=== PATIENT | male | born 2000 | race Caucasian/White ===

== ENCOUNTER 2019-09-25 14:40 | Emergency (ER) | payer SELFPAY ==
[2019-09-25 14:57] VITALS: BP 125/68; PULSE 77; RESP 16; TEMP 37.1; O2SAT 99
--- NOTE | 2019-09-25 15:04 | ED.DENTAL ---
HPI - Dental/Oral General Chief complaint: Dental/Oral Stated complaint: Toothache and facial swelling Time Seen by Provider: 09/25/19 15:05 Source: patient and RN notes reviewed Mode of arrival: ambulatory Limitations: no limitations History of Present Illness HPI Narrative: This is a 19 years old male presents to the office for an evaluation of tooth pain for one month. Patient stated that he broke his left lower tooth from trying to open a beer bottle a month ago, complains of pain off and on since then; however it gets worse last night and woke up this morning with left side facial swelling. He tried salt gargle last night. He also try to alternate heat and ice for pain along with ibuprofen and Tylenol. He cannot afford to see a dentist at the moment. Related Data Allergies Allergy/AdvReac Type Severity Reaction Status Date / Time No Known Allergies Allergy Verified 09/25/19 14:59 Review of Systems Review of Systems: Narrative: CONSTITUTIONAL: Denies fever ENT: Denies congestion CARDIOVASCULAR: Denies chest pain RESPIRATORY: Denies cough GASTROINTESTINAL: Denies nausea, vomiting SKIN: Denies rash NEUROLOGIC: Denies lightheaded PMFSH Comments At time of signature, I agree with nursing past medical, surgical, social and family history. There is no relevant family history pertinent to the presenting complaint. Exam Narrative: Exam Narrative: GENERAL: This is a well-nourished, well-developed patient, in no apparent distress. EYES: Sclera and conjunctivae normal ENT: External ears normal. Nose and lips normal. Airway patent.The tooth in question is very carious and the gum is swollen and tender around it. There is slight facial swelling without cervical or submandibular lymphadenopathy. The patient appears uncomfortable and in pain. CARDIOVASCULAR: Regular rate and rhythm without murmurs, gallops, or rubs. RESPIRATORY: Clear to auscultation. Breath sounds equal bilaterally. No wheezes, rales, or rhonchi. GASTROINTESTINAL: Abdomen soft, non-tender, nondistended. Bowel sounds are active. No hepato-splenomegaly, or palpable masses. No guarding. SKIN: warm, intact with no suspicious lesions or rash, good texture and turgor. NEURO: awake, alert, and oriented to person, place and time. There were no obvious focal neurologic abnormalities. Fly Coma Scale Eye Opening: Spontaneous 4 Fly Coma Scale Motor: Obeys Commands 6 [place] Coma Scale Verbal: Oriented 5 Course Vital Signs Vital signs: Vital Signs Temperature 98.7 F 09/25/19 14:57 Pulse Rate 77 09/25/19 14:57 Respiratory Rate 16 09/25/19 14:57 Blood Pressure 125/68 09/25/19 14:57 Pulse Oximetry 99 09/25/19 14:57 Temperature 98.7 F 09/25/19 14:57 Pulse Rate 77 09/25/19 14:57 Respiratory Rate 16 09/25/19 14:57 Blood Pressure 125/68 09/25/19 14:57 Pulse Oximetry 99 09/25/19 14:57 MDM - Dental/Oral MDM Narrative Medical decision making narrative: Discharge instructions reviewed with patient, as well as provided in writing per nursing staff. The instructions also include specific and strict return/GO TO THE ER as well as f/u information. All questions have been answered, and the patient deny any further questions with discharge and discharge plan. Differential Diagnosis Differential diagnosis: Likely gingival abscess, dental caries, toothache, dental abscess, fracture of tooth and aphthous ulcer Critical Care Time Critical Care Time Critical Care Time: No Discharge Plan Discharge Clinical Impression: Gingivitis Patient Disposition: Home, Self-Care Condition: Stable Instructions: Antibiotic Form, Gingivitis (ED) Additional Instructions: Take antibiotic until it's gone. Brushing teeth at least twice daily with gentle flossing. Avoid temperature extremes---when you eat. Salt gargle to rinse your mouth after every meal You may apply ice to the face to reduce pain/swelling. For pain, you may ta
== END 2019-09-25 15:18 | disposition home or self-care (01) ==
PROVIDERS: Emergency Provider Nurse Practitioner
DX: K05.10 Chronic gingivitis, plaque induced (principal)
CPT/HCPCS: 99203; G0463

== ENCOUNTER 2021-07-23 08:43 | Emergency (ER) | payer SELFPAY ==
[2021-07-23 08:52] VITALS: BP 129/71; PULSE 77; RESP 16; TEMP 36.6; O2SAT 100
--- NOTE | 2021-07-23 09:36 | ED_ITS ---
HPI - Dental/Oral General Chief complaint: Dental/Oral Stated complaint: Tooth Pain Source: patient and RN notes reviewed Limitations: no limitations History of Present Illness HPI Narrative: The patient, a pot smoker/nondrinker, presents with tooth ache. Patient states he has about a 1 week history of right upper tooth ache that is mild, worse with palpation, better at rest. No fever, hoarseness, visible swelling, yet his gums are occasionally bleeding and tender. Symptoms are mild, worse with eating, unresponsive to Motrin; he request for refill of prior inhaler Review of Systems Review of Systems: General/Constitutional: No weight loss,fever Eyes: N0: Redness,discharge Ears/Nose/Throat: No: Epistaxis,ear discharge Respiratory: Denies: Hemoptysis PMFSH Comments At time of signature, agree with nursing past medical, surgical, social and family history. There is no relevant family history pertinent to the presenting complaint Exam Narrative: General Appearance: Well appearing, , Conjunctiva clear Mouth/Throat: Normal appearing (without jaw swelling), Normal lips, MM moist, Uvula midline (scattered dental caries and fillings,, with rare fracture) Neck: Supple, No adenopathy Respiratory: Airway patent, No respiratory distress, Clear to auscultation Musculoskeletal: Full ROM, Non tender, Normal strength, Warm, Dry, Normal color Neurological: A&O x3, , Normal affect Course Vital Signs Vital signs: Vital Signs Temperature 97.8 F 07/23/21 08:52 Pulse Rate 77 07/23/21 08:52 Respiratory Rate 16 07/23/21 08:52 Blood Pressure 129/71 07/23/21 08:52 Pulse Oximetry 100 07/23/21 08:52 Temperature 97.8 F 07/23/21 08:52 Pulse Rate 77 07/23/21 08:52 Respiratory Rate 16 07/23/21 08:52 Blood Pressure 129/71 07/23/21 08:52 Pulse Oximetry 100 07/23/21 08:52 Discharge Plan Discharge Clinical Impression: Toothache, Hx of gingivitis Patient Disposition: Home, Self-Care Condition: Stable Instructions: Antibiotic Form Prescriptions: New amoxicillin 875 mg tablet 875 mg PO Q12H Qty: 14 RF: 0 lidocaine HCl [Lidocaine Viscous] 2 % solution 5 ml mucous membrane QID PRN (Reason: pain) Qty: 100 RF: 2 tramadol 50 mg tablet 50 - 75 mg PO TID PRN (Reason: pain) Qty: 30 RF: 0 albuterol sulfate [Ventolin HFA] 90 mcg/actuation HFA aerosol inhaler 2 puff INHALATION QID PRN (Reason: shortness of breath or wheezing) Qty: 8.5 RF: 1 Follow-up/Referrals: PHYSICIAN,MAIL CARRIER TECHNICIAN [Primary Care Provider] -
== END 2021-07-23 09:40 | disposition home or self-care (01) ==
PROVIDERS: Emergency Provider Emergency Medicine
DX: K08.89 Other specified disorders of teeth and supporting structures (principal); K05.10 Chronic gingivitis, plaque induced
CPT/HCPCS: 99203; G0463

== ENCOUNTER 2021-07-30 08:48 | Emergency (ER) | payer SELFPAY ==
[2021-07-30 09:06] VITALS: BP 127/74; PULSE 80; RESP 16; TEMP 37; O2SAT 100
--- NOTE | 2021-07-30 09:28 | ED.ANIMALBIT ---
HPI - Animal Bite General Chief Complaint: Animal Bite Stated Complaint: Bite Time Seen by Provider: 07/30/21 09:28 Source: patient and RN notes reviewed Mode of arrival: ambulatory Limitations: no limitations History of Present Illness HPI narrative: 21-year-old male presents to the [facility] with complaints of a dog bite. 2 cm laceration to the left palmar aspect. Puncture wound noted to the right. Multiple abrasions noted to the dorsal aspect of the hand. Bleeding is controlled. Reports her dog is up-to-date on vaccines states that it is his own dog. Happened this morning. Unsure of patient's Tdap. Capillary refill in all 5 fingers under 2 seconds. Strong boom storage noted. MD complaint: animal bite Related Data Allergies Allergy/AdvReac Type Severity Reaction Status Date / Time No Known Allergies Allergy Verified 07/30/21 09:49 Review of Systems Review of Systems: All systems reviewed & are unremarkable except as noted in HPI and below Constitutional: Constitutional: Reports no additional constitutional complaints, Denies chills and Denies fever(s) Eyes: Eyes: Reports no additional eye complaints ENT: Reports system reviewed and no additional complaints, except as documented Cardiovascular: Cardiovascular: Reports no additional cardiovascular complaints Respiratory: Respiratory: Reports no additional respiratory complaints Gastrointestinal: Gastrointestinal: Reports no additional gastrointestinal complaints Musculoskeletal: Musculoskeletal: Reports no additional musculoskeletal complaints Integumentary/Breasts: Skin/Breast: Reports as per HPI, Denies erythema and Denies rash Comments: Left hand laceration palmar aspect. Right hand puncture wound palmar aspect. Multiple abrasions aspect bilateral hands Neurologic: Reports system reviewed and no additional complaints, except as documented Psychiatric: Psychiatric: Reports no additional psychiatric complaints Allergic/Immunologic: Allergic/Immunologic: Reports no additional allergic/immunologic complaints [facility] Past Medical History Medical History (Updated 07/30/21 @ 18:13 by Kalpana Hyman) No significant medical problems Surgical History Surgical History (Updated 07/30/21 @ 18:13 by Kalpana Hyman) History of ankle surgery Right Social History Social History (Updated 07/30/21 @ 18:13 by Kalpana Hyman) Smoking status: Current every day smoker Substance use type: marijuana Gender identity (if verbalized by the patient): Male Comments At the time of my signature, I reviewed and agree with the nursing past medical, surgical, social, and family history. There is no relevant family history pertinent to the patient complaint. Exam Const: General: healthy appearing, no acute distress and alert Nutritional Appearance: well nourished Orientation/consciousness: patient oriented x3 Limitations: no limitations HENMT: Head: normal to inspection Ears: external ears normal Eyes: Pupils: Equal, round and reactive pupils present Neck: Neck: normal visual inspection, no lymphadenopathy and no meningeal signs Chest: Chest palpation & inspection: normal inspection of the chest Resp: Effort & Inspection: normal respiratory effort Cardio: Rate: regular rate Back/Spine/Pelvis: Back: no CVA tenderness Skin: Wounds: wounds noted laceration left palmar hand size (2 cm), drainage serosanguinous and with surrounding erythema, puncture wound right palmar hand size (0.5); no drainage Other: Multiple abrasions to the dorsal aspect of bilateral hands Neuro: General: patient oriented x3, moves all extremities and no meningeal signs Extrem: General: normal to inspection Psych: Appearance: grossly normal and well kempt Mental Status: mental status grossly normal Affect: normal affect Attitude: cooperative Thought content: Yes Normal thought content present Course Course Emergency Course: Discharge instructions reviewed with patient, as well
[2021-07-30] MEDS: TETANUS,DIPHTHERIA,AC PERTUSSIS ADULT (0.5 ML) BOOSTRIX IM (10:36)
== END 2021-07-30 10:45 | disposition home or self-care (01) ==
PROVIDERS: Emergency Provider Nurse Practitioner
DX: S61.452A Open bite of left hand, initial encounter (principal); F17.200 Nicotine dependence, unspecified, uncomplicated; Z23 Encounter for immunization; W54.0XXA Bitten by dog, initial encounter
CPT/HCPCS: 12001; 90715; 99213; G0463

== ENCOUNTER 2022-02-06 12:58 | Emergency (ER) | payer SELFPAY ==
[2022-02-06 13:05] VITALS: BP 136/68; PULSE 83; RESP 16; TEMP 36.8; O2SAT 99
--- NOTE | 2022-02-06 13:22 | ED.SKABFB ---
HPI - Skin/Abscess/Foreign Bdy General Chief complaint: Skin/Abscess/Foreign Body Stated complaint: tick bite Time Seen by Provider: 02/06/22 13:22 Source: patient Mode of arrival: ambulatory Limitations: no limitations History of Present Illness HPI narrative: 21-year-old male presented for complaint of tick bite to the left inner ankle. He first noticed the tick 2 days ago when he removed it. He was on float trip 4 days ago. He states it was slightly engorged. Since then the red spot has increased in size, states it is tender and mild itchy. Denies active drainage, pain, fevers or chills. He applied alcohol to the site. He denies any other locations of tick bites or lesions. MD complaint: rash Related Data Allergies Allergy/AdvReac Type Severity Reaction Status Date / Time No Known Allergies Allergy Verified 02/06/22 13:04 Review of Systems Review of Systems: CONSTITUTIONAL: Denies body aches, fever, chills, or sweats. ENT: Denies rhinorrhea, congestion, sore throat, or otalgia. CARDIOVASCULAR: Denies chest pain, palpitations, or edema. RESPIRATORY: Denies cough or dyspnea. SKIN: reports ankle lesion MUSCULOSKELETAL: Denies back pain, joint pain, or myalgia. NEUROLOGIC: Denies headache, numbness, tingling, or weakness. [facility] Past Medical History Medical History No significant medical problems Surgical History Surgical History History of ankle surgery Right Social History Social History Smoking status: Current every day smoker Substance use type: marijuana Gender identity (if verbalized by the patient): Male Comments At time of signature, I have reviewed and agree with nursing past medical, surgical, social and family history unless otherwise noted. Please see nursing chart for further information. There is no relevant family history pertinent to the presenting complaint Exam Narrative: GENERAL: Well-appearing ENT: Mucous membranes moist. CHEST: Clear to auscultation. No respiratory distress. HEART: Regular rate and rhythm. SKIN: Warm, dry.Left medial ankle with red lesion approx 0.5cm diameter, no fluctuance or active drainage; surrounding red papules c/w folliculitis. NEURO: Alert and oriented x3. PSYCH: Normal mood and affect Course Course Emergency Course: Patient is aware of diagnosis, understands and agrees to treatment plan. Anticipatory guidance given. Patient agrees to follow-up as directed and is aware of reasons to seek care at the emergency department. Portions of this record may have been created with voice recognition software Level of Care: Express Care Visit Vital Signs Vital signs: Vital Signs Temperature 98.3 F 02/06/22 13:05 Pulse Rate 83 02/06/22 13:05 Respiratory Rate 16 02/06/22 13:05 Blood Pressure 136/68 02/06/22 13:05 Pulse Oximetry 99 02/06/22 13:05 Oxygen Delivery Room Air 02/06/22 13:05 Temperature 98.3 F 02/06/22 13:05 Pulse Rate 83 02/06/22 13:05 Respiratory Rate 16 02/06/22 13:05 Blood Pressure 136/68 02/06/22 13:05 Pulse Oximetry 99 02/06/22 13:05 Oxygen Delivery Room Air 02/06/22 13:05 Reviewed MDM - Skin/Abscess/Foreign Bdy MDM Narrative Medical decision making narrative: Does not appear at this time to be erythema multiforme, bullous, SJS, TEN; no evidence at this time to suggest RMSF, endocarditis or Lyme disease Patient looks well, no neurologic signs or symptoms; appropriate for initial outpatient treatment; discussed the importance of follow-up, patient agrees Given Rx doxy for prophylaxis. Instructed patient to go to nearest ER immediately for any worsening symptoms including but not limited to: fever, spreading rash, pain, sore throat, headache, dizziness, chest pain, trouble breathing, or any symptoms concerning to the pat
== END 2022-02-06 13:34 | disposition home or self-care (01) ==
PROVIDERS: Emergency Provider Nurse Practitioner Family
DX: S90.562A Insect bite (nonvenomous), left ankle, initial encounter (principal); W57.XXXA Bitten or stung by nonvenomous insect and other nonvenomous arthropods, initial encounter
CPT/HCPCS: 99213; G0463

== ENCOUNTER 2022-04-08 15:23 | Emergency (ER) | payer SELFPAY ==
[2022-04-08 15:34] VITALS: BP 134/83; PULSE 85; RESP 16; TEMP 36.7; O2SAT 100
--- NOTE | 2022-04-08 15:38 | ED.DENTAL ---
HPI - Dental/Oral General Chief complaint: Dental/Oral Stated complaint: Tooth Pain Time Seen by Provider: 04/08/22 15:38 Source: patient Mode of arrival: ambulatory Limitations: no limitations History of Present Illness HPI Narrative: 21-year-old male presents with complaint of left lower dental pain for several days. Reports that 1 or 2 months ago he broke left lower tooth. Does not have a dentist. States that after working 100 more hours he should be getting dental insurance through his work. Denies fever or chills. No significant facial swelling noted. All systems reviewed and negative except as noted above. Related Data Allergies Allergy/AdvReac Type Severity Reaction Status Date / Time No Known Allergies Allergy Verified 04/08/22 15:35 Review of Systems Review of Systems: CONSTITUTIONAL: Denies fever, chills, or sweats. EYES: Denies visual changes, redness, or discharge. ENT: Denies rhinorrhea, congestion, sore throat, or otalgia. Reports left lower dental pain. CARDIOVASCULAR: Denies chest pain, palpitations, or edema. RESPIRATORY: Denies cough or dyspnea. GASTROINTESTINAL: Denies abdominal pain, nausea, vomiting, or diarrhea. GENITOURINARY: Denies dysuria or hematuria. SKIN: Denies rash or itching. MUSCULOSKELETAL: Denies back pain, joint pain, or myalgia. NEUROLOGIC: Denies headache, numbness, or weakness. PSYCHIATRIC: Denies anxiety or depression. All other systems reviewed are negative, except as documented in HPI. PMFSH Past Medical History Medical History No significant medical problems Surgical History Surgical History History of ankle surgery Right Social History Social History Smoking status: Current every day smoker Substance use type: marijuana Gender identity (if verbalized by the patient): Male Comments At time of signature, agree with nursing past medical, surgical, social and family history. There is no relevant family history pertinent to the presenting complaint. Exam Narrative: GENERAL: This is a well-nourished, well-developed patient, in no apparent distress. HEAD: normocephalic, atraumatic. EYES: PERRL. Sclera clear/white. Vision is grossly intact. EARS: External ears normal NOSE: External nose normal MOUTH: Tooth #20 has broken down to gumline. There is some surrounding erythema. Patient has several other broken and decayed teeth. NECK: Neck supple, non-tender without lymphadenopathy, masses or thyromegaly. CARDIOVASCULAR: Regular rate and rhythm without murmurs, gallops, or rubs. RESPIRATORY: Clear to auscultation. Breath sounds equal bilaterally. No wheezes, rales, or rhonchi. SKIN: warm, Dry, intact with no suspicious lesions or rash, good texture and turgor. NEURO: awake, alert, and oriented to person, place and time. There were no obvious focal neurologic abnormalities. EXTREMITIES: No joint tenderness, effusion, or edema noted. Course Course Level of Care: Express Care Visit Vital Signs Vital signs: Vital Signs Temperature 36.7 C 04/08/22 15:34 Pulse Rate 85 04/08/22 15:34 Respiratory Rate 16 04/08/22 15:34 Blood Pressure 134/83 04/08/22 15:34 Pulse Oximetry 100 04/08/22 15:34 Oxygen Delivery Room Air 04/08/22 15:34 Temperature 36.7 C 04/08/22 15:34 Pulse Rate 85 04/08/22 15:34 Respiratory Rate 16 04/08/22 15:34 Blood Pressure 134/83 04/08/22 15:34 Pulse Oximetry 100 04/08/22 15:34 Oxygen Delivery Room Air 04/08/22 15:34 Reviewed MDM - Dental/Oral MDM Narrative Medical decision making narrative: Patient is aware of diagnosis, understands and agrees to treatment plan. Anticipatory guidance given. Patient agrees to follow-up as directed and is aware of reasons to seek care at the emergency department. Portions of this record may have bee
== END 2022-04-08 15:45 | disposition home or self-care (01) ==
PROVIDERS: Emergency Provider Nurse Practitioner Family
DX: K08.89 Other specified disorders of teeth and supporting structures (principal); F17.200 Nicotine dependence, unspecified, uncomplicated
CPT/HCPCS: 99213; G0463

== ENCOUNTER 2022-06-03 11:48 | Emergency (ER) | payer SELFPAY ==
--- NOTE | 2022-06-03 11:49 | ED.DENTAL ---
HPI - Dental/Oral General Stated complaint: Dental Pain Time Seen by Provider: 06/03/22 11:49 Source: patient Mode of arrival: ambulatory Limitations: no limitations History of Present Illness HPI Narrative: Morales is a 22-year-old male patient presenting to the clinic today with complaints of dental pain 3 days. He reports he was seen here approximately 2 weeks ago and was placed on amoxicillin for a dental infection. He states that the medicine made him feel better however the symptoms came back 3 days ago. He reports pain over the right sinuses and has noted some green nasal drainage with blood. Thinks that his right upper premolar tooth may be abscessed Related Data Allergies Allergy/AdvReac Type Severity Reaction Status Date / Time No Known Allergies Allergy Verified 06/03/22 12:04 Review of Systems Review of Systems: Pertinent positives per HPI. Patient denies any fever, chills, rash, headache, visual changes, dizziness, cough, runny nose, sore throat, shortness of breath, chest pain, palpitations, nausea, vomiting, diarrhea, constipation, abdominal pain, or any urinary issues. PMFSH Past Medical History Medical History No significant medical problems Surgical History Surgical History History of ankle surgery Right Social History Social History Smoking status: Current every day smoker Substance use type: marijuana Gender identity (if verbalized by the patient): Male Comments At the time of my signature, I reviewed and agree with the nursing past medical, surgical, social, and family history. There is no relevant family history pertinent to the patient complaint. Exam Narrative: General: Well-developed, well nourished, in no apparent distress Head: Normocephalic, atraumatic Eyes: Pupils equally round and reactive to light bilaterally, EOM intact, sclera and conjunctive clear, no discharge, lids normal Ears: TMs intact and clear, ear canals clear, no drainage, grossly hearing normal. Nose: Nares patent, no discharge, no inflammation, no sinus tenderness. Mouth: Oropharynx without lesions or masses, poor dentition, MMM. Fractured #5 and dental abscess over #4 with tenderness to palpation-no fluctuance Neck: Supple, trachea midline, no enlargement of anterior or posterior cervical nodes, no thyroid masses or goiter palpable. Cardio: Regular rate and rhythm, s1 and s2 normal, no murmur appreciated. Resp: Clear to auscultation bilaterally anteriorly and posteriorly, no rhonchi, rales, wheezing or rubs Course Course Emergency Course: Portions of this record may have been created with voice recognition software. Level of Care: Express Care Visit Vital Signs Vital signs: Vital signs reviewed MDM - Dental/Oral MDM Narrative Medical decision making narrative: At the time of visit patient is resting comfortably on the exam table I suspect patient has a dental abscess to the right upper tooth. We will send in prescription for Augmentin. Supportive measures were discussed with the patient he voiced understanding of discharge instructions and agrees to treatment plan. Differential Diagnosis Differential diagnosis: Likely dental caries, toothache, dental abscess and fracture of tooth Discharge Plan Discharge Clinical Impression: Dental abscess Patient Disposition: Home, Self-Care Condition: Stable Instructions: Antibiotic Form, Dental Abscess (ED) Additional Instructions: Take Augmentin as prescribed Increase fluids and stay well hydrated Take tylenol/motrin for pain/fever Follow up with your dentist as soon as possible Prescriptions: New amoxicillin-pot clavulanate 875-125 mg tablet 1 tablet PO Q12H 10 Days Qty: 20 0RF No Action amoxicillin 875 mg tablet 875 mg PO Q12H 10
[2022-06-03 11:54] VITALS: BP 136/75; PULSE 95; RESP 16; TEMP 37.3; O2SAT 99
== END 2022-06-03 12:12 | disposition home or self-care (01) ==
LOC: EXPCOLL 11:51
PROVIDERS: Emergency Provider Nurse Practitioner Family
DX: K04.7 Periapical abscess without sinus (principal); F12.90 Cannabis use, unspecified, uncomplicated
CPT/HCPCS: 99213; G0463

== ENCOUNTER 2022-07-31 15:37 | Emergency (ER) | payer SELFPAY ==
--- NOTE | ~2022-07-31 | XR_ITS ---
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 no cardiac hx Comparison: 06/12/2016. RESULT: Lines, tubes, and devices: None. Lungs and pleura: Clear. Cardiomediastinal silhouette: Stable. Other: No acute osseous or upper abdominal finding. IMPRESSION: No acute cardiopulmonary process. Reviewed, dictated and finalized at location K. MOTIVE SWITCH OPERATOR
[2022-07-31 16:15] VITALS: BP 157/96; PULSE 91; RESP 16; TEMP 36.8; O2SAT 100
--- NOTE | 2022-07-31 16:28 | ECG_ITS ---
Measurements Intervals [place] Rate: 81 P: 49 [place]: 147 QRS: 90 QRSD: 110 T: 40 QT: 360 QTc: 419 Interpretive Statements SINUS RHYTHM NORMAL ECG NO PREVIOUS ECG AVAILABLE FOR COMPARISON Electronically Signed On 07-31-2022 17:41:31 LAYER UP by Yair Mejias M.D.
[2022-07-31 16:48] LABS: Basophils Absolute Auto 0.1 K/mm3 (0.0-0.1); Basophils Percent Auto 0.8 % (0.2-1.2); Eosinophils Absolute Auto 0.2 K/mm3 (0-0.3); Eosinophils Percent Auto 2.3 % (0-4.4); Hematocrit 43.8 % (42.0-52.0); Hemoglobin 15.5 g/dL (14.0-18.0); Immature Granulocyte Absolute 0.08 K/mm3 (0.00-0.031); Immature Granulocyte Percent A 0.9 % (0-0.5); Lymphocytes Absolute Auto 2.88 K/mm3 (0.9-3.2); Lymphocytes Percent Auto 31.1 % (18.3-44.2); Mean Corpuscular HGB Conc 35.4 g/dl (32-36); Mean Corpuscular Hemoglobin 31.4 pg (26-34); Mean Corpuscular Volume 88.7 fl (80-100); Mean Platelet Volume 9.7 fl (7.4-10.4); Monocytes Absolute Auto 0.9 K/mm3 (0.1-0.6); Monocytes Percent Auto 10.2 % (2.6-8.5); Neutrophils Absolute Auto 5.1 K/mm3 (1.3-6.7); Neutrophils Percent Auto 54.7 % (45.5-73.1); Platelet Count Result 410 k/mm3 (150-375); Red Blood Count 4.94 M/mm3 (4.6-6.20); Red Cell Distribution Width 12.2 % (11.5-14.5); White Blood Count 9.3 K/mm3 (4.5-10.0)
[2022-07-31 16:59] LABS: Alanine Aminotransferase 79 U/L (6-50); Albumin Level 4.9 g/dL (3.5-5.1); Alkaline Phosphatase 83 U/L (38-126); Anion Gap 8 mmol/L (8-16); Aspartate Amino Transferase 53 U/L (17-59); Bilirubin,Total 0.7 mg/dL (0.2-1.3); Blood Urea Nitrogen 15 mg/dL (9-20); Calcium 9.5 mg/dL (8.4-10.2); Carbon Dioxide 27 mmol/L (22-30); Chloride 106 mmol/L (98-107); Estimated CRCL calculation 108 ml/min; Estimated Glomerular Filt Rate > 60; Glucose 94 mg/dL (65-110); Potassium 3.9 mmol/L (3.4-5.0); Sodium 141 mmol/L (137-145)
--- NOTE | 2022-07-31 21:05 | PC.NURSE ---
no answer at triage
== END 2022-07-31 21:05 | disposition left against medical advice (07) ==
PROVIDERS: Emergency Provider Emergency Medicine
DX: R03.0 Elevated blood-pressure reading, without diagnosis of hypertension (principal)
CPT/HCPCS: 36415; 71046; 80053; 85025; 93005; 99199

== ENCOUNTER 2023-01-06 11:04 | Emergency (ER) | payer OTHER, SELFPAY ==
--- NOTE | ~2023-01-06 | CT_ITS ---
EXAMINATION: CT abdomen pelvis w con DATE: 01/06/2023 12:18 INDICATION: Right lower quadrant abdominal tenderness. TECHNIQUE: Computed tomography (CT) of the abdomen and pelvis was performed with 100 mL Omnipaque 350 intravenous contrast. Automated exposure control and iterative reconstruction technique were employe d. The dose-length product was 445.29 mGy-cm. COMPARISON: None. FINDINGS: The visualized portions of the lung bases demonstrate mild atelectasis. No pleural effusion . The heart size is normal. No pericardial effusion. There is a 5 mm cyst in the liver. The gallbladd er, spleen, pancreas, adrenal glands, and right kidney are normal. There is a 3 mm cyst in left kidne y. There are no dilated loops of bowel. The appendix is normal. There are no pathologically enlarged lymph nodes. There is no free intraperitoneal fluid. There is an umbilical hernia containing fat. The re is mild lumbar spondylosis. IMPRESSION: 1. Umbilical hernia containing fat. Reviewed, dictated and finalized at location A.
[2023-01-06 11:08] VITALS: BP 145/89; PULSE 83; RESP 16; TEMP 36.5; O2SAT 100
[2023-01-06 11:31] LABS: Basophils Percent Auto 0.6 % (0.2-1.2); Eosinophils Absolute Auto 0.2 K/mm3 (0-0.3); Eosinophils Percent Auto 2.3 % (0-4.4); Hematocrit 44.8 % (42.0-52.0); Hemoglobin 15.8 g/dL (14.0-18.0); Immature Granulocyte Absolute 0.03 K/mm3 (0.00-0.031); Immature Granulocyte Percent A 0.5 % (0-0.5); Lymphocytes Absolute Auto 2.51 K/mm3 (0.9-3.2); Lymphocytes Percent Auto 39.2 % (18.3-44.2); Mean Corpuscular HGB Conc 35.3 g/dl (32-36); Mean Corpuscular Hemoglobin 30.9 pg (26-34); Mean Corpuscular Volume 87.5 fl (80-100); Mean Platelet Volume 10.1 fl (7.4-10.4); Monocytes Absolute Auto 0.6 K/mm3 (0.1-0.6); Neutrophils Absolute Auto 3.1 K/mm3 (1.3-6.7); Neutrophils Percent Auto 48.4 % (45.5-73.1); Platelet Count Result 334 k/mm3 (150-375); Red Blood Count 5.12 M/mm3 (4.6-6.20); Red Cell Distribution Width 12.2 % (11.5-14.5); White Blood Count 6.4 K/mm3 (4.5-10.0)
[2023-01-06 11:33] LABS: Appearance Urine Clear (Clear); Bilirubin Urine Negative (Negative); Blood Urine Negative (Negative); Color Urine Yellow (Yellow); Glucose Urine UA Negative (Negative); Ketones Urine Negative (Negative); Leukocyte Esterase Ur Negative LEU/UL (Negative); Nitrate Urine Negative (Negative); Protein Urine Negative (Negative); Specific Grav Ur 1.016 (1.001-1.035)
[2023-01-06 11:40] LABS: Alanine Aminotransferase 33 U/L (6-50); Albumin Level 4.8 g/dL (3.5-5.1); Alkaline Phosphatase 84 U/L (38-126); Anion Gap 10 mmol/L (8-16); Aspartate Amino Transferase 33 U/L (17-59); Bilirubin,Total 0.6 mg/dL (0.2-1.3); Blood Urea Nitrogen 10 mg/dL (9-20); Carbon Dioxide 24 mmol/L (22-30); Chloride 105 mmol/L (98-107); Estimated CRCL calculation 123 ml/min; Estimated Glomerular Filt Rate > 60; Glucose 94 mg/dL (65-110); Lipase 88 U/L (23-300); Potassium 4.1 mmol/L (3.4-5.0); Sodium 139 mmol/L (137-145)
[2023-01-06 11:43] LABS: Add Urine Microscopic? NO
--- NOTE | 2023-01-06 11:56 | ED.GENADULT ---
HPI - General Adult General Chief complaint: Abdominal Pain Stated complaint: abd pain Time Seen by Provider: 01/06/23 11:10 History of Present Illness HPI narrative: 22-year-old male presented the emergency department for evaluation of lower abdominal pain. Patient states approximate 3 weeks ago he developed some left lower quadrant tingling which she states over the last few days has worsened and progressed to right lower quadrant pain. Patient does have history of irritable bowel syndrome and patient did have a colonoscopy a few years ago. Patient states he has had some nausea with this. Patient states he was having a lot of diarrhea. Patient was concerned that maybe he was having some constipation and was only passing liquid stool so he took some Dulcolax and felt that this did worsen his symptoms. Related Data Home Medications Medication Instructions Recorded Confirmed No Home Medications 01/06/23 01/06/23 Allergies Allergy/AdvReac Type Severity Reaction Status Date / Time No Known Allergies Allergy Verified 06/03/22 12:04 Review of Systems Review of Systems: All systems reviewed & are unremarkable except as noted in HPI and below PMFSH Past Medical History Medical History No significant medical problems Surgical History Surgical History History of ankle surgery Right Social History Social History Smoking status: Current every day smoker Substance use type: marijuana Gender identity (if verbalized by the patient): Male Exam Narrative: APPEARANCE: Well appearing, no pain, no distress, well-nourished. HEAD: normocephalic, atraumatic. EYES: PERRLA/EOMI, conjunctivae clear. NOSE: Normal no drainage NECK: Supple. No adenopathy, no masses. RESPIRATORY: Airway patent, respirations nonlabored. Clear to auscultation bilaterally, no rales, rhonchi, wheezing. CARDIOVASCULAR: Regular rate and rhythm without murmurs rubs or gallops. ABDOMINAL: Soft, right lower quadrant tenderness to palpation MUSCULOSKELETAL: Moves all extremities. Strength/ROM intact, No edema, No calf tenderness. NEURO: Alert. Cranial nerves II through XII intact. Grossly intact SKIN: Warm, dry. Normal Color Course Course Emergency Course: 22-year-old male presented the emergency department for right lower quadrant pain. Patient is afebrile with no leukocytosis. Patient's CMP is within normal limits. UA shows no evidence of urinary tract infection or hematuria. Patient declined medications for nausea or for pain control. Patient does have reproducible tenderness to the right lower quadrant. CT with contrast is being ordered to evaluate for possible appendicitis versus colitis. Patient was updated on the plan for imaging. All questions and concerns were addressed. CT scan showed umbilical hernia containing fat. Patient was updated and results of his labs and CT. patient was comfortable to plan for discharge and close follow-up. Vital Signs Vital signs: Vital Signs Temperature 97.7 F 01/06/23 11:08 Pulse Rate 83 01/06/23 11:08 Respiratory Rate 16 01/06/23 11:08 Blood Pressure 145/89 H 01/06/23 11:08 Pulse Oximetry 100 01/06/23 11:08 Temperature 97.7 F 01/06/23 11:08 Pulse Rate 73 01/06/23 13:07 Respiratory Rate 16 01/06/23 13:07 Blood Pressure 127/95 H 01/06/23 13:07 Pulse Oximetry 100 01/06/23 13:07 Medical Decision Making Differential Diagnosis Differential Diagnosis: Colitis, appendicitis, irritable bowel syndrome, constipation, diverticulitis Vital Signs Vital Signs: Vital Signs Temperature 97.7 F 01/06/23 11:08 Pulse Rate 83 01/06/23 11:08 Respiratory Rate 16 01/06/23 11:08 Blood Pressure 145/89 H 01/06/23 11:08 Pulse Oximetry 100 01/06/23 11:08 Temperat
[2023-01-06 12:23] VITALS: BP 129/78; PULSE 69; RESP 18; O2SAT 97
[2023-01-06 13:07] VITALS: BP 127/95; PULSE 73; RESP 16; O2SAT 100
== END 2023-01-06 13:08 | disposition home or self-care (01) ==
PROVIDERS: Emergency Provider Emergency Medicine
DX: R10.30 Lower abdominal pain, unspecified (principal); F17.210 Nicotine dependence, cigarettes, uncomplicated
CPT/HCPCS: 36415; 74177; 80053; 81003; 83690; 85025; 99284; Q9967

== ENCOUNTER 2023-10-20 15:28 | Emergency (ER) | payer OTHER, SELFPAY ==
--- NOTE | ~2023-10-20 | XR_ITS ---
EXAMINATION: [id number] DATE: 10/20/2023 15:46 INDICATION: Left rib pain. Injury. TECHNIQUE: A frontal view of the chest and 2 views on 3 radiographs of the left ribs were obtained. COMPARISON: Chest 2 views 07/31/22 FINDINGS: There is no pneumonia, pleural effusion, or pneumothorax. The heart size is normal. There i s a fracture of left seventh rib. IMPRESSION: 1. Fracture of left seventh rib. Reviewed, dictated and finalized at location A. K [employer]
[2023-10-20 15:38] VITALS: BP 139/73; PULSE 102; RESP 16; TEMP 36.6; O2SAT 100
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
== END 2023-10-20 16:18 | disposition home or self-care (01) ==
PROVIDERS: Emergency Provider Nurse Practitioner Family
DX: S22.32XA Fracture of one rib, left side, initial encounter for closed fracture (principal); V86.06XA Driver of dirt bike or motor/cross bike injured in traffic accident, initial encounter; F17.200 Nicotine dependence, unspecified, uncomplicated; F12.90 Cannabis use, unspecified, uncomplicated
CPT/HCPCS: 71101; 99213; G0463

== ENCOUNTER 2023-10-27 12:57 | Emergency (ER) | payer OTHER, SELFPAY ==
--- NOTE | ~2023-10-27 | XR_ITS ---
EXAMINATION: XR chest 2V DATE: 10/27/2023 13:28 INDICATION: Productive cough, tobacco use TECHNIQUE: PA and lateral views of the chest are obtained. COMPARISON: 07/31/2022 FINDINGS: The lungs are free of acute opacities. No pleural effusion or pneumothorax. The cardiomedia stinal silhouette is normal. The visualized bones and soft tissues are unremarkable. IMPRESSION: 1. No acute cardiopulmonary abnormality. Reviewed, dictated and finalized at location B. [employer]
[2023-10-27 13:10] VITALS: PULSE 91; RESP 16; O2SAT 99
[2023-10-27 13:14] VITALS: BP 132/86; PULSE 91; RESP 16; TEMP 37.6; O2SAT 99
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
== END 2023-10-27 13:43 | disposition home or self-care (01) ==
PROVIDERS: Emergency Provider Nurse Practitioner Family
DX: J10.1 Influenza due to other identified influenza virus with other respiratory manifestations (principal); Z20.822 Contact with and (suspected) exposure to COVID-19; F17.200 Nicotine dependence, unspecified, uncomplicated; F12.90 Cannabis use, unspecified, uncomplicated
CPT/HCPCS: 71046; 87426; 87804; 99213; G0463

== ENCOUNTER 2023-12-02 17:37 | Emergency (ER) | payer OTHER, SELFPAY ==
[2023-12-02 17:45] VITALS: BP 154/98; PULSE 98; RESP 18; TEMP 36.6; O2SAT 100
--- NOTE | 2023-12-02 18:16 | ED.SKABFB ---
HPI - Skin/Abscess/Foreign Bdy General Chief complaint: Skin/Abscess/Foreign Body Stated complaint: Right Hand Laceration Time Seen by Provider: 12/02/23 17:45 Source: patient Mode of arrival: ambulatory Limitations: no limitations History of Present Illness HPI narrative: Morales is a 23-year-old male patient presenting to the clinic today with complaints of a laceration to the webbing in between his right thumb and 1st index finger. He reports that he cut this early these morning around midnight. States he did not come in sooner because he had a to go to this morning. Wound is gaped open, bleeding is controlled. Tetanus shot is up-to-date per patient. Has full range of motion of his fingers and his thumb. Related Data Allergies Allergy/AdvReac Type Severity Reaction Status Date / Time No Known Allergies Allergy Verified 12/02/23 17:38 Review of Systems Review of Systems: Pertinent positives per HPI. Patient denies any fever, chills, rash, headache, visual changes, dizziness, cough, runny nose, sore throat, shortness of breath, chest pain, palpitations, nausea, vomiting, diarrhea, constipation, abdominal pain, or any urinary issues. PMFSH Past Medical History Medical History No significant medical problems Surgical History Surgical History History of ankle surgery Right Social History Social History Smoking status: Current every day smoker Substance use type: marijuana Gender identity (if verbalized by the patient): Male Comments At the time of my signature, I reviewed and agree with the nursing past medical, surgical, social, and family history. There is no relevant family history pertinent to the patient complaint. Exam Narrative: General: Well-developed, well nourished, in no apparent distress Head: Normocephalic, atraumatic. Cardio: Regular rate and rhythm, s1 and s2 normal, no murmur appreciated. Resp: Clear to auscultation bilaterally, no rhonchi, rales, wheezing or rubs. Integumentary: [place], warm, and dry, 3.5 cm laceration across the webbing of the right hand in between the thumb and index finger. Wound gaped, bleeding controlled, tender to palpation, no obvious foreign body visualized Course Course Emergency Course: Portions of this record may have been created with voice recognition software. Level of Care: Express Care Visit Vital Signs Vital signs: Vital Signs Temperature 36.6 C 12/02/23 17:45 Pulse Rate 98 12/02/23 17:45 Respiratory Rate 18 12/02/23 17:45 Blood Pressure 154/98 H 12/02/23 17:45 Pulse Oximetry 100 12/02/23 17:45 Oxygen Delivery Room Air 12/02/23 17:45 Temperature 36.6 C 12/02/23 17:45 Pulse Rate 98 12/02/23 17:45 Respiratory Rate 18 12/02/23 17:45 Blood Pressure 154/98 H 12/02/23 17:45 Pulse Oximetry 100 12/02/23 17:45 Oxygen Delivery Room Air 12/02/23 17:45 Vital signs reviewed Procedures Laceration Laceration 1: Date: 12/02/23 Site: hand Side (If applicable): right Size (cm): 3.5 Description: linear Depth: simple, single layer Local Anesthetic: lidocaine 1% Amount of anesthesia used (mL): 4 Pre-repair: wound explored, irrigated, irrigated extensively and minor debridement ====== Skin Level ====== Skin layer closed with: nylon Size (cm): 4-0 Number of sutures: 6 Technique: simple, interrupted ====== Subcutaneous Layer ====== ====== Muscle Layer ====== ====== Tendon Layer ====== Dressing: Verbal consent obtained for laceration repair. Risk and benefits explained and patient voiced understanding. Area was cleansed with normal saline and antiseptic soap and a 27 gauge needle was then used to instill (4) ml of 1% l
[2023-12-02] MEDS: LIDOCAINE HCL 1% LOCAL INJ 2 ML AMPUL 4 ML INFILTRATE (18:36)
== END 2023-12-02 19:15 | disposition home or self-care (01) ==
PROVIDERS: Emergency Provider Nurse Practitioner Family
DX: S61.411A Laceration without foreign body of right hand, initial encounter (principal); W45.8XXA Other foreign body or object entering through skin, initial encounter; F17.200 Nicotine dependence, unspecified, uncomplicated; F12.90 Cannabis use, unspecified, uncomplicated
CPT/HCPCS: 12042; 99213; G0463

== ENCOUNTER 2024-03-19 10:51 | Emergency (ER) | payer SELFPAY ==
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
[2024-03-19 11:12] VITALS: BP 134/89; PULSE 104; RESP 18; TEMP 36.4; O2SAT 100
--- NOTE | 2024-03-19 11:43 | PC.NURSE ---
Addendum entered by Billy Tejeda RN 03/19/24 11:44: Correction: CT with contrast. Order changed. Original Note: EDP Kahlil notified of patient's symptoms and presentation. Per EDP, order CTA chest abdomen and pelvis.
[2024-03-19 12:01] LABS: Basophils Absolute Auto 0.1 K/mm3 (0.0-0.1); Basophils Percent Auto 0.7 % (0.2-1.2); Eosinophils Absolute Auto 0.2 K/mm3 (0-0.3); Eosinophils Percent Auto 1.4 % (0-4.4); Hematocrit 46.4 % (42.0-52.0); Hemoglobin 16.1 g/dL (14.0-18.0); Immature Granulocyte Absolute 0.05 K/mm3 (0.00-0.031); Immature Granulocyte Percent A 0.5 % (0-0.5); Lymphocytes Absolute Auto 2.24 K/mm3 (0.9-3.2); Mean Corpuscular HGB Conc 34.7 g/dl (32-36); Mean Corpuscular Hemoglobin 31.4 pg (26-34); Mean Corpuscular Volume 90.6 fl (80-100); Mean Platelet Volume 10.3 fl (7.4-10.4); Monocytes Absolute Auto 1.2 K/mm3 (0.1-0.6); Monocytes Percent Auto 11.4 % (2.6-8.5); Neutrophils Absolute Auto 6.9 K/mm3 (1.3-6.7); Platelet Count Result 354 k/mm3 (150-375); Red Blood Count 5.12 M/mm3 (4.6-6.20); Red Cell Distribution Width 12.7 % (11.5-14.5); White Blood Count 10.7 K/mm3 (4.5-10.0)
[2024-03-19 12:13] LABS: Prothrombin Time 13.1 Seconds (11.1-14.7)
[2024-03-19 12:14] LABS: Partial Thromboplastin Time 28.3 Seconds (22.3-36.8)
[2024-03-19 12:18] LABS: Alanine Aminotransferase 64 U/L (6-50); Albumin Level 4.9 g/dL (3.5-5.1); Alkaline Phosphatase 90 U/L (38-126); Anion Gap 13 mmol/L (4-12); Aspartate Amino Transferase 52 U/L (17-59); Bilirubin,Total 0.9 mg/dL (0.2-1.3); Blood Urea Nitrogen 8 mg/dL (9-20); Calcium 9.4 mg/dL (8.4-10.2); Carbon Dioxide 23 mmol/L (22-30); Chloride 104 mmol/L (98-107); Estimated Glomerular Filt Rate > 60; Glucose 106 mg/dL (65-110); Potassium 4.1 mmol/L (3.4-5.0); Sodium 140 mmol/L (137-145)
[2024-03-19 13:09] VITALS: BP 138/76; PULSE 89; RESP 14; O2SAT 100
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
[2024-03-19 13:26] LABS: Appearance Urine Clear (Clear); Bacteria Urine None Seen /hpf; Bilirubin Urine Negative (Negative); Blood Urine Negative (Negative); Color Urine Yellow (Yellow); Glucose Urine UA Negative (Negative); Ketones Urine Negative (Negative); Leukocyte Esterase Ur Negative LEU/UL (Negative); Need Manual Microscopic Reviewed; Nitrate Urine Negative (Negative); Non Pathogenic Casts 0-2; Protein Urine Trace mg/dL (Negative); RBC Urine 0-2 /hpf (0-2); Specific Grav Ur > 1.045 (1.001-1.035); Squamous Epithelial Cell Urine None Seen /hpf (Few); Urobilinogen Urine 0.2 mg/dL (<2.0); WBC Urine 0-5 /hpf (0-3)
[2024-03-19 13:27] LABS: Add Urine Microscopic? YES
[2024-03-19] MEDS: ONDANSETRON INJ 4 MG/2 ML VIAL IV PUSH (13:32)
[2024-03-19] MEDS: HYDROmorphone HCL INJ (*CRX) 1 MG/ML SYR IV PUSH (13:35)
[2024-03-19] MEDS: methocarbamoL 500 MG TABLET 1000 MG PO (13:36)
[2024-03-19 13:38] VITALS: BP 135/89; PULSE 96; RESP 19; O2SAT 97
[2024-03-19 14:30] VITALS: BP 144/99; PULSE 86; RESP 17; O2SAT 97
[2024-03-19 15:05] LABS: Estimated Glomerular Filt Rate > 60
== END 2024-03-19 14:33 | disposition home or self-care (01) ==
PROVIDERS: Emergency Medicine; Emergency Provider Student in an Organized Health Care Education/Training Program
DX: S20.222A Contusion of left back wall of thorax, initial encounter (principal); F17.200 Nicotine dependence, unspecified, uncomplicated; V86.56XA Driver of dirt bike or motor/cross bike injured in nontraffic accident, initial encounter
CPT/HCPCS: 36415; 71260; 74177; 80053; 81001; 82565; 85025; 85610; 85730; 96374; 96375; 99284; A9270; J1170; J2405; Q9967

== ENCOUNTER 2024-06-22 15:06 | Emergency (ER) | payer SELFPAY ==
--- NOTE | ~2024-06-22 | XR_ITS ---
EXAMINATION: XR chest 2V Exam Date/Time: 06/22/2024 15:20 CDT HISTORY: productive cough x 3 weeks, hard to catch breath Comparison: None. RESULT: Lines, tubes, and devices: None. Lungs and pleura: Clear. Cardiomediastinal silhouette: Stable. Other: No acute osseous or upper abdominal finding. IMPRESSION: No acute cardiopulmonary process. Reviewed, dictated and finalized at location K.
[2024-06-22 15:13] VITALS: BP 140/82; PULSE 98; RESP 15; TEMP 36.2; O2SAT 99
--- NOTE | 2024-06-22 15:20 | ED_ITS ---
HPI - URI/Sore Throat General Chief Complaint: Upper Respiratory Infection Stated Complaint: Cough Time Seen by Provider: 06/22/24 15:30 Source: patient, RN notes reviewed and old records reviewed Mode of arrival: ambulatory Limitations: no limitations History of Present Illness HPI Narrative: Patient presents with complaints of cough, runny nose, wheezing and sinus congestion for 3-4 weeks. He denies any fever, chills, sweats. He reports that he does have asthma has been using his albuterol inhaler more off with normal Related Data Allergies Allergy/AdvReac Type Severity Reaction Status Date / Time No Known Allergies Allergy Verified 06/22/24 15:08 Review of Systems Review of Systems: All systems reviewed & are unremarkable except as noted in HPI and below Constitutional: Constitutional: Reports no additional constitutional complaints ENT: Reports system reviewed and no additional complaints, except as documented, Reports as per HPI, Reports nasal discharge, Reports sinus pain, Reports sinus pressure and Reports sore throat Cardiovascular: Cardiovascular: Reports no additional cardiovascular complaints Respiratory: Respiratory: Reports as per HPI, Reports no additional respiratory complaints, Reports cough and Reports wheezing Gastrointestinal: Gastrointestinal: Reports no additional gastrointestinal complaints [facility] Past Medical History Medical History No significant medical problems Surgical History Surgical History History of ankle surgery Right Social History Social History Smoking status: Current every day smoker Substance use type: marijuana Gender identity (if verbalized by the patient): Male Comments At the time of my signature, I reviewed and agree with the nursing past medical, surgical, social, and family history. There is no relevant family history pertinent to the patient complaint. Exam Const: General: cooperative, no acute distress, alert and awake Orientation/consciousness: oriented to person, oriented to place and oriented to time HENMT: Head: normal to inspection Face and sinus: sinus tenderness Mouth: Yes moist mucous membranes Throat: posterior oropharynx abnormal erythema and postnasal drainage Resp: Effort & Inspection: normal respiratory effort and able to speak in complete sentences Auscultation: clear to auscultation bilaterally, no crackles, no rales, no rhonchi and no wheezes Cardio: Palpation: normal PMI Rate: regular rate Rhythm: regular rhythm Heart sounds: S1 normal heart sound present and S2 normal heart sound present Neuro: General: oriented to person, oriented to place and oriented to time Cranial nerves: Yes CN's II-XII intact bilaterally Psych: Appearance: grossly normal Thought process: Normal thought process present Insight: Good insight present (Psych) Judgement: Good judgement present (Psych) Course Course Level of Care: Express Care Visit Vital Signs Vital signs: Vital Signs Temperature 97.1 F L 06/22/24 15:13 Pulse Rate 98 06/22/24 15:13 Respiratory Rate 15 06/22/24 15:13 Blood Pressure 140/82 06/22/24 15:13 Pulse Oximetry 99 06/22/24 15:13 Oxygen Delivery Room Air 06/22/24 15:13 Temperature 97.1 F L 06/22/24 15:13 Pulse Rate 98 06/22/24 15:13 Respiratory Rate 15 06/22/24 15:13 Blood Pressure 140/82 06/22/24 15:13 Pulse Oximetry 99 06/22/24 15:13 Oxygen Delivery Room Air 06/22/24 15:13 Reviewed MDM - URI/Sore Throat MDM Narrative Medical decision making narrative: History and exam consistent with both bronchitis and sinusitis. Treat for both. Patient is not in any distress, nontoxic appearing. Stable for discharge home on p.o. medications. Albuterol refilled. Follow with primary care provider. Emergency department for new or worse symptoms. Discharge instructions reviewed with patient, as well as provided in writing per nursing staff. The instructions also include specific and strict return/GO TO THE ER as well as f/u information. All questions have been answered, and the patient deny any further questions with discharge and discharge plan. Some parts of this dictation were generated by voice recognition software and may contain typographical and/or grammatical inaccuracies. Differential Diagnosis Differential diagnosis: Likely upper respiratory infection, otitis media, sinusitis, viral infection, bronchitis, influenza and pharyngitis Medical Records Attestation: I reviewed the patient's medical records. 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 RESULT: Lines, tubes, and devices: None. Lungs and pleura: Clear. Cardiomediastinal silhouette: Stable. Other: No acute osseous or upper abdominal finding. IMPRESSION: No acute cardiopulmonary process. Reviewed, dictated and finalized at location K. Dictated By: Rios Cuevas MD 06/22/24 1528 Signed By: <Electronically signed by Rios Cuevas MD in OV> 06/22/24 1529 Discharge Plan Discharge Clinical Impression: Bronchitis Sinusitis Qualifiers: Sinusitis location: maxillary Chronicity: acute Recurrence: not specified as recurrent Qualified Code(s): J01.00 - Acute maxillary sinusitis, unspecified Patient Disposition: Home, Self-Care Condition: Stable Instructions: Antibiotic Form, Sinusitis (ED), Acute Bronchitis (ED) Additional Instructions: Take all medications as prescribed. Follow with primary care provider. Emergency department for new or worse symptoms Patient Language: Romansh Prescriptions: New amoxicillin-pot clavulanate 875-125 mg tablet 1 tablet PO Q12H Qty: 14 0RF prednisone 50 mg tablet 50 mg PO DAILY Qty: 5 0RF albuterol sulfate [Ventolin HFA] 90 mcg/actuation HFA aerosol inhaler 2 puff inhalation QID PRN (Reason: shortness of breath or wheezing) Qty: 8.5 0RF benzonatate 200 mg capsule 200 mg PO TID PRN (Reason: cough) Qty: 30 0RF Follow-up/Referrals: PHYSICIAN,RETAIL LOAN OFFICER [Primary Care Provider] - Time of Disposition: 15:47
== END 2024-06-22 15:50 | disposition home or self-care (01) ==
PROVIDERS: Emergency Provider Nurse Practitioner Family
DX: J40 Bronchitis, not specified as acute or chronic (principal); J01.00 Acute maxillary sinusitis, unspecified; F17.200 Nicotine dependence, unspecified, uncomplicated; F12.90 Cannabis use, unspecified, uncomplicated
CPT/HCPCS: 71046; 99213; G0463

== ENCOUNTER 2025-07-08 22:42 | Emergency (ER) | payer BC, SELFPAY ==
--- NOTE | ~2025-07-08 | XR_ITS ---
Examination: XR foot RT min 3V Clinical History: R foot pain s/p surgery Comparison: None Technique: 3 views right foot Findings/impression: 1. No acute fracture or bony abnormality identified. 2. Plate and screw fixation across navicular, medial cuneiform, first metatarsal. 3. Dorsal midfoot soft tissue swelling with small soft tissue emphysema, probably postoperative change rather than infection but correlate with date of surgery. Reviewed, dictated and finalized at location [facility]
--- OUTSIDE RECORDS SUMMARY | 2025-07-08 07:09 | XMS_ITS | Encounter Summary ---
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 Nonste JIMMY Screw 2.7Mm 28Mm T8 Cortx V Ss Nonste [employer] [place] Right[employer] Implanted JIMMY Screw 2.7Mm 30Mm T8 Cortx V Ss Nonste JIMMY Screw 2.7Mm 30Mm T8 Cortx V Ss Nonste [employer] [place] Right[employer] Implanted Synthes VOLT 2.7mm x 36mm screw Synthes [facility] Right 1 Implanted Synthes VOLT 2.7mm x 40mm screw Synthes [facility] Right 1 Implanted Synthes VOLT T-plate 3 hole head Estade[employer] [facility] Right 1 Implanted Sanchez Moss MD Cosigned by Nathan De DO at 07/08/2025 2:38 PM RECRUITING SCHEDULER UITING SCHEDULER UITING SCHEDULER documented in this encounter Plan of Treatment Upcoming Encounters Date Type Department Care Team (Late st Contact Info) Description 07/12/2025 10:30 AM RECRUITING SCHEDULER Office Visit [facility] - Orthopedics [address] [place] [address] [place] [address] Nathan De, [address] [place] [address] [place] [address] Scheduled Procedures Name Priority Associated Diagnoses Date/Ti me OPEN REDUCTION INTERNAL FIXATION (ORIF) TARSAL/METATARSAL Lisfranc's dislocation, right, initial encounter Nondisplaced fracture of medial cuneiform of right foot, initial encounter for closed fracture 07/08/2025 9:06 AM RECRUITING SCHEDULER documented as of this encounter Procedures Procedure Name Priority Date/Time Associated Diagnosis Comments [place] LIZZETTE SURGERY Routine 07/08/2025 11:11 AM RECRUITING SCHEDULER Lisfranc's dislocation, right, initial encounter documented in this encounter Results * [place] L[facility]ette Surgery (07/08/2025 11:11 AM RECRUITING SCHEDULER) Narrative [facility] - 07/08/2025 11:54 AM RECRUITING SCHEDULER Fluoroscopy was used for this exam in the OR. Please see the Operative report. us Nathan De DO FLUOROSCOPY ORDERABLES Final R esult [facility] documented in this encounter Visit Diagnoses Diagnosis Lisfranc's dislocation, right, initial encounter- Primary Lisfranc's dislocation, right, initial encounter Nondisplaced fracture of medial cuneiform of right foot, initial encounter for closed fracture Nondisplaced fracture of medial cuneiform of right foot, initial encounter for closed fracture documented in this encounter Admitting Diagnoses Diagnosis Nondisplaced fracture of medial cuneiform of right foot, initial encounter for closed fracture Lisfranc's dislocation, right, initial encounter documented in this encounter Administered Medications Inactive Administered Medications - up to 3 most recent administrations Medication Order MAR Action Action Date Dose Rate Site acetaminophen (Tylenol) tablet 1,000 mg 1,000 mg, Oral, PRE-OP ONCE, 1 dose, On Fri07/08/25 at 0730, Patient preference for lesser PRN pain meds may be honored when the patient requests a less strong medication, a lower dose, or a less intrusive route of administration when the lesser drug, dose and route have been ordered for the patient. This patient request must be documented in the MAR. If both oral and IV options are ordered for the same pain severity, give oral first unless patient cannot tolerate oral intake., Pre-op $ Given 07/08/2025 7:48 AM RECRUITING SCHEDULER 1,000 mg acetaminophen (Tylenol) tablet 1,000 mg 1,000 mg, Oral, EVERY 6 HOURS PRN, mild pain, Starting on Fri07/08/25 at 1400, Until Fri07/08/25 at 1539, Patient preference for lesser PRN pain meds may be honored when the patient requests a less strong medication, a lower dose, or a less intrusive route of administration when the lesser drug, dose and route have been ordered for the patient. This patient request must be documented in the MAR. If both oral and IV options are ordered for the same pain severity, give oral first unless patient cannot tolerate oral intake. albuterol-ipratropium (Duo-Neb) nebulizer solution 3 mL 3 mL, Inhalation, POST-OP MULTIPLE, Starting on Fri07/08/25 at 1143, Until Fri07/08/25 at 1539, For wheezing. Notify anesthesia immediately., PACU cyclobenzaprine (Flexeril) tablet 5 mg 5 mg, Oral, 3 TIMES DAILY PRN, muscle spasms, Starting on Fri07/08/25 at 1248, Until Fri07/08/25 at 1539 $ Given 07/08/2025 1:32 PM RECRUITING SCHEDULER 5 mg fentaNYL (PF) (Sublimaze) injection 25 mcg 25 mcg, Intravenous, EVERY 10 MIN PRN, mild pain, 4 doses, Starting on Fri07/08/25 at 1143, Until Fri07/08/25 at 1539, Maximum total of 4 doses. If patient reaches max total dose, please consult anesthesiologist prior to further administration of pain meds. Hold pain meds if there are signs of hypoventilation. Patient preference for lesser PRN pain meds may be honored when the patient requests a less strong medication, a lower dose, or a less intrusive route of administration when the lesser drug, dose and route have been ordered for the patient. This patient request must be documented in the MAR. If both oral and IV options are ordered for the same pain severity, give oral first unless patient cannot tolerate oral intake., PACU fentaNYL (PF) (Sublimaze) injection 50 mcg 50 mcg, Intravenous, EVERY 10 MIN PRN, moderate pain, 4 doses, Starting on Fri07/08/25 at 1143, Until Fri07/08/25 at 1240, Maximum total of 4 doses. If patient reaches max total dose, please consult anesthesiologist prior to further administration of pain meds. Hold pain meds if there are signs of hypoventilation. Patient preference for lesser PRN pain meds may be honored when the patient requests a less strong medication, a lower dose, or a less intrusive route of administration when the lesser drug, dose and route have been ordered for the patient. This patient request must be documented in the MAR. If both oral and IV options are ordered for the same pain severity, give oral first unless patient cannot tolerate oral intake., PACU $ Given 07/08/2025 12:40 PM RECRUITING SCHEDULER 50 mcg $ Given 07/08/2025 12:20 PM RECRUITING SCHEDULER 50 mcg $ Given 07/08/2025 12:00 PM RECRUITING SCHEDULER 50 mcg hydrALAZINE (Apresoline) injection 5 mg 5 mg, Intravenous, POST-OP MULTIPLE, 4 doses, Starting on Fri07/08/25 at 1143, Until Fri07/08/25 at 1539, IV given slowly over 1 minute, up to 20 mg. Repeat 5 mg IV dose every 10-15 minutes for sustained hypertension SBP greater than 180, DBP greater than 100., PACU HYDROmorphone (Dilaudid) injection 0.5 mg 0.5 mg, Intravenous, EVERY 10 MIN PRN, severe pain, 4 doses, Starting on Fri07/08/25 at 1143, Until Fri07/08/25 at 1539, Maximum total of 4 doses If patient reaches max total dose, please consult anesthesiologist prior to further administration of pain meds. Hold pain meds if there are signs of hypoventilation. Patient preference for lesser PRN pain meds may be honored when the patient requests a less strong medication, a lower dose, or a less intrusive route of administration when the lesser drug, dose and route have been ordered for the patient. This patient request must be documented in the MAR. If both oral and IV options are ordered for the same pain severity, give oral first unless patient cannot tolerate oral intake., PACU $ Given 07/08/2025 12:51 PM RECRUITING SCHEDULER 0.5 mg $ Given 07/08/2025 12:10 PM RECRUITING SCHEDULER 0.5 mg $ Given 07/08/2025 11:40 AM RECRUITING SCHEDULER 0.5 mg labetalol (Normodyne; Trandate) injection 5 mg 5 mg, Intravenous, POST-OP MULTIPLE, 4 doses, Starting on Fri07/08/25 at 1143, Until Fri07/08/25 at 1539, First Choice, hold if heart rate is less than 60 BPM IV given slowly over 1 minute up to 20 mg. Repeat every 10-15 minutes in 5 mg doses. Give for hypertension SBP greater than 180, DBP greater than 100. , PACU lactated ringers infusion at 20 mL/hr, Intravenous, PRE-OP CONTINUOUS, Starting on Fri07/08/25 at 0730, Until Fri07/08/25 at 1133, Pre-op Restarted 07/08/2025 10:45 AM RECRUITING SCHEDULER $ New Bag/Syringe 07/08/2025 7:45 AM RECRUITING SCHEDULER 20 mL/ hr naloxone (Narcan) injection 0.04 mg 0.04 mg, Intravenous, POST-OP MULTIPLE, Starting on Fri07/08/25 at 1143, Until Fri07/08/25 at 1539, If respirations are less than 8 per minute and O2 sat is less than 90%, bag/mask patient and notify anesthesia immediately. If directed to administer naloxone, dilute 0.4mg in 9mL normal saline for dilution of 0.04mg/mL. Administer 1mL over 30 seconds while observing the patient response and titrating to effect. If no response, continue IV naloxone at the same rate up to a total of 0.8 mg of diluted naloxone., PACU ondansetron (Zofran) injection 4 mg 4 mg, Intravenous, ONCE PRN, nausea/vomiting, 1 dose, Starting on Fri07/08/25 at 1143, Until Fri07/08/25 at 1539, First choice, PACU oxyCODONE (immediate release) (Roxicodone) tablet 5 mg 5 mg, Oral, EVERY 6 HOURS PRN, moderate pain, Starting on Fri07/08/25 at 1247, Until Fri07/08/25 at 1539, Patient preference for lesser PRN pain meds may be honored when the patient requests a less strong medication, a lower dose, or a less intrusive route of administration when the lesser drug, dose and route have been ordered for the patient. This patient request must be documented in the MAR. If both oral and IV options are ordered for the same pain severity, give oral first unless patient cannot tolerate oral intake. $ Given 07/08/2025 1:[address] 5 mg oxyCODONE (immediate release) (Roxicodone) tablet 5 mg 5 mg, Oral, ONCE, 1 dose, On Fri07/08/25 at 1430, Patient preference for lesser PRN pain meds may be honored when the patient requests a less strong medication, a lower dose, or a less intrusive route of administration when the lesser drug, dose and route have been ordered for the patient. This patient request must be documented in the MAR. If both oral and IV options are ordered for the same pain severity, give oral first unless patient cannot tolerate oral intake., Post-opIndications:Acute Pain $ Given 07/08/2025 2:07 PM RECRUITING SCHEDULER 5 mg prochlorperazine (Compazine) injection 10 mg 10 mg, Intravenous, ONCE PRN, nausea/vomiting, 1 dose, Starting on Fri07/08/25 at 1143, Until Fri07/08/25 at 1539, Second choice, use if first choice was ineffective., PACU documented in this encounter Active and Recently Administered Medications Times are shown in RECRUITING SCHEDULER. Scheduled Medication Order 07/06/2025 07/07/2025 07/08/2025 acetaminophen (Tylenol) tablet 1,000 mg (COMPLETED) 1,000 mg, Oral, PRE-OP ONCE, 1 dose, On Fri07/08/25 at 0730, Patient preference for lesser PRN pain meds may be honored when the patient requests a less strong medication, a lower dose, or a less intrusive route of administration when the lesser drug, dose and route have been ordered for the patient. This patient request must be documented in the MAR. If both oral and IV options are ordered for the same pain severity, give oral first unless patient cannot tolerate oral intake., Pre-op 0748 ($ Given - Prov ider: Elis Coffman RN) albuterol-ipratropium (Duo-Neb) nebulizer solution 3 mL 3 mL, Inhalation, POST-OP MULTIPLE, Starting on Fri07/08/25 at 1143, Until Fri07/08/25 at 1539, For wheezing. Notify anesthesia immediately., PACU hydrALAZINE (Apresoline) injection 5 mg 5 mg, Intravenous, POST-OP MULTIPLE, 4 doses, Starting on Fri07/08/25 at 1143, Until Fri07/08/25 at 1539, IV given slowly over 1 minute, up to 20 mg. Repeat 5 mg IV dose every 10-15 minutes for sustained hypertension SBP greater than 180, DBP greater than 100., PACU labetalol (Normodyne; Trandate) injection 5 mg 5 mg, Intravenous, POST-OP MULTIPLE, 4 doses, Starting on Fri07/08/25 at 1143, Until Fri07/08/25 at 1539, First Choice, hold if heart rate is less than 60 BPM IV given slowly over 1 minute up to 20 mg. Repeat every 10-15 minutes in 5 mg doses. Give for hypertension SBP greater than 180, DBP greater than 100. , PACU naloxone (Narcan) injection 0.04 mg 0.04 mg, Intravenous, POST-OP MULTIPLE, Starting on Fri07/08/25 at 1143, Until Fri07/08/25 at 1539, If respirations are less than 8 per minute and O2 sat is less than 90%, bag/mask patient and notify anesthesia immediately. If directed to administer naloxone, dilute 0.4mg in 9mL normal saline for dilution of 0.04mg/mL. Administer 1mL over 30 seconds while observing the patient response and titrating to effect. If no response, continue IV naloxone at the same rate up to a total of 0.8 mg of diluted naloxone., PACU oxyCODONE (immediate release) (Roxicodone) tablet 5 mg (COMPLETED) 5 mg, Oral, ONCE, 1 dose, On Fri07/08/25 at 1430, Patient preference for lesser PRN pain meds may be honored when the patient requests a less strong medication, a lower dose, or a less intrusive route of administration when the lesser drug, dose and route have been ordered for the patient. This patient request must be documented in the MAR. If both oral and IV options are ordered for the same pain severity, give oral first unless patient cannot tolerate oral intake., Post-op 1407 ($ Given - Prov ider: Elis Coffman RN) Continuous Medication Order 07/06/2025 07/07/2025 07/08/2025 lactated ringers infusion (CANCELED) at 20 mL/hr, Intravenous, PRE-OP CONTINUOUS, Starting on Fri07/08/25 at 0730, Until Fri07/08/25 at 1133, Pre-op 0745 ($ New Bag/Syri nge - Provider: Elis Coffman RN)1044 (Paused - Provider: Lanny Beckwith DO - Comment: Switch to gravity)1045 (Restarted - Provider: Lanny Beckwith DO) PRN Medication Order 07/06/2025 07/07/2025 07/08/2025 acetaminophen (Tylenol) tablet 1,000 mg 1,000 mg, Oral, EVERY 6 HOURS PRN, mild pain, Starting on Fri07/08/25 at 1400, Until Fri07/08/25 at 1539, Patient preference for lesser PRN pain meds may be honored when the patient requests a less strong medication, a lower dose, or a less intrusive route of administration when the lesser drug, dose and route have been ordered for the patient. This patient request must be documented in the MAR. If both oral and IV options are ordered for the same pain severity, give oral first unless patient cannot tolerate oral intake. cyclobenzaprine (Flexeril) tablet 5 mg 5 mg, Oral, 3 TIMES DAILY PRN, muscle spasms, Starting on Fri07/08/25 at 1248, Until Fri07/08/25 at 1539 1332 ($ Given - Prov ider: Elis Coffman RN) fentaNYL (PF) (Sublimaze) injection 25 mcg 25 mcg, Intravenous, EVERY 10 MIN PRN, mild pain, 4 doses, Starting on Fri07/08/25 at 1143, Until Fri07/08/25 at 1539, Maximum total of 4 doses. If patient reaches max total dose, please consult anesthesiologist prior to further administration of pain meds. Hold pain meds if there are signs of hypoventilation. Patient preference for lesser PRN pain meds may be honored when the patient requests a less strong medication, a lower dose, or a less intrusive route of administration when the lesser drug, dose and route have been ordered for the patient. This patient request must be documented in the MAR. If both oral and IV options are ordered for the same pain severity, give oral first unless patient cannot tolerate oral intake., PACU fentaNYL (PF) (Sublimaze) injection 50 mcg (COMPLETED) 50 mcg, Intravenous, EVERY 10 MIN PRN, moderate pain, 4 doses, Starting on Fri07/08/25 at 1143, Until Fri07/08/25 at 1240, Maximum total of 4 doses. If patient reaches max total dose, please consult anesthesiologist prior to further administration of pain meds. Hold pain meds if there are signs of hypoventilation. Patient preference for lesser PRN pain meds may be honored when the patient requests a less strong medication, a lower dose, or a less intrusive route of administration when the lesser drug, dose and route have been ordered for the patient. This patient request must be documented in the MAR. If both oral and IV options are ordered for the same pain severity, give oral first unless patient cannot tolerate oral intake., PACU 1150 ($ Given - Prov ider: Rachel Moon RN)1200 ($ Given - Provider: Rachel Moon RN)1220 ($ Given - Provider: Rachel Moon RN)1240 ($ Given - Provider: Claudia Erwin RN) HYDROmorphone (Dilaudid) injection 0.5 mg 0.5 mg, Intravenous, EVERY 10 MIN PRN, severe pain, 4 doses, Starting on Fri07/08/25 at 1143, Until Fri07/08/25 at 1539, Maximum total of 4 doses If patient reaches max total dose, please consult anesthesiologist prior to further administration of pain meds. Hold pain meds if there are signs of hypoventilation. Patient preference for lesser PRN pain meds may be honored when the patient requests a less strong medication, a lower dose, or a less intrusive route of administration when the lesser drug, dose and route have been ordered for the patient. This patient request must be documented in the MAR. If both oral and IV options are ordered for the same pain severity, give oral first unless patient cannot tolerate oral intake., PACU 1140 ($ Given - Prov ider: Rachel Moon RN)1210 ($ Given - Provider: Rachel Moon RN)1251 ($ Given - Provider: Claudia Erwin RN) ondansetron (Zofran) injection 4 mg 4 mg, Intravenous, ONCE PRN, nausea/vomiting, 1 dose, Starting on Fri07/08/25 at 1143, Until Fri07/08/25 at 1539, First choice, PACU oxyCODONE (immediate release) (Roxicodone) tablet 5 mg 5 mg, Oral, EVERY 6 HOURS PRN, moderate pain, Starting on Fri07/08/25 at 1247, Until Fri07/08/25 at 1539, Patient preference for lesser PRN pain meds may be honored when the patient requests a less strong medication, a lower dose, or a less intrusive route of administration when the lesser drug, dose and route have been ordered for the patient. This patient request must be documented in the MAR. If both oral and IV options are ordered for the same pain severity, give oral first unless patient cannot tolerate oral intake. 1332 ($ Given - Prov ider: Elis Coffman RN) prochlorperazine (Compazine) injection 10 mg 10 mg, Intravenous, ONCE PRN, nausea/vomiting, 1 dose, Starting on Fri07/08/25 at 1143, Until Fri07/08/25 at 1539, Second choice, use if first choice was ineffective., PACU documented in this encounter Care Teams Metropolitan Editor Relationship Specialty Start Date End Date Bin Fernandez MD [address] [place] [address] PCP - General Pediatrics 11/24/13 documented as of this encounter
--- OUTSIDE RECORDS SUMMARY | 2025-07-08 08:50 | XMS_ITS | Encounter Summary ---
Author Organization [facility] Address [address] [place] [address] Care Team Providers Care Vice President Business Development Name Role Phone Bin Fernandez MD Primary Care Provider [phone] Reason for Visit * Auth/Cert Specialty Diagnoses / Procedures Referred By Padmaja harrison Referred To Contact Diagnoses Lisfranc's dislocation, right, initial encounter Nondisplaced fracture of medial cuneiform of right foot, initial encounter for closed fracture Lisfranc's dislocation, right, initial encounter [S93.324A] Nondisplaced fracture of medial cuneiform of right foot, initial encounter for closed fracture [S92.244A] Procedures NM TREAT MIDFOOT FRACTURE, EACH OPEN REDUCTION INTERNAL FIXATION (ORIF) TARSAL/METATARSAL OPEN REDUCTION INTERNAL FIXATION (ORIF) TARSAL/METATARSAL Referral ID Status Reason Start Date Expiration Date Visits Re quested Visits Authorized [id number] 1 1 Encounter Details Date Type Department Care Team (Late st Contact Info) Description 07/08/2025 8:50 AM [facility] - 07/08/2025 11:43 AM [facility] Surgery [facility] [address] [place] [address] Nathan De, DO [address] [facility] [place] [address] OPEN REDUCTION INTERNAL FIXATION right TARSAL/METATARSAL, Lisfranc dislocation Social History Tobacco Use Types Packs/Day Years [...] on file Legal Sex Male 5:38 AM [facility] Gender Identity Not on file Sexual Orientation Not on file documented as of this encounter Last Filed Vital Signs Vital Sign Reading Time Taken Comments Blood Pressure 138/92 07/08/2025 11:40 AM [facility] Pulse 61 07/08/2025 11:40 AM [facility] Temperature 36.4 C (97.5 F) 07/08/2025 11:35 AM [facility] Respiratory Rate 25 07/08/2025 11:40 AM [facility] Oxygen Saturation 100% 07/08/2025 11:40 AM [facility] Inhaled Oxygen Concentration - - Weight 60.8 kg (134 lb) 07/08/2025 7:23 AM [facility] Height 165.1 cm (5' 5) 07/08/2025 7:23 AM [facility] Body Mass Index 22.3 07/08/2025 7:23 AM [facility] documented in this encounter Functional Status * Question Answer Date of Assessment Author Q1: How often do you have a drink containing alcohol? 2-3 times a week 07/08/2025 7:38 AM [facility] Elis Coffman RN Q2: How many drinks containing alcohol do you have on a typical day when you are drinking? 3 or 4 07/08/2025 7:38 AM [facility] Quin Coffman RN * Is person deaf [...] HYDROcodone-acetaminophen 5-325 MG tablet Commonly known as: Kent ibuprofen 600 MG tablet Commonly known as: Motrin Patient Instructions: No discharge procedures on file. Narcotic Medication Patient Information You are being discharged/sent home with a prescription(s) for narcotic pain medicine (examples: Oxycodone, Hydrocodone, Roxicodone, Percocet, Kent). Our goal is to control your pain, [...] Tylenol. - Many pain medicines (such as Kent or Percocet) also contain Tylenol/Acetaminophen (this is [...] HISTORY OF Negative Medical History Unspecified asthma(493.90) ([facility]) exercise induced - uses inhaler Cosigned by Nathan De DO at 07/08/2025 2:39 PM [facility] documented in this encounter Discharge Instructions * Discharge Instructions* Sanchez Moss MD - 07/08/2025 11:40 AM [facility] Orthopedic Trauma Surgery Patient Discharge Instructions Patient [...] such as your primary care doctor, a curbing stonecutter (heart), vascular (blood vessel), or a rattan worker (lung), please call their office for instructions. [...] mail, or fax it to our office ([phone]) in advance so itcan be completed in a timely manner before the necessary deadline. FMLA, disability, and work paperwork is completed each Friday by the Clinical Cytopathologist. Also, the doctor is only in the office one day a week to sign the paperwork. Please contact our clinic at if you need to schedule or change an appointment or forany additional questions. After hours: [phone] - ask the auxiliary powerplant operator for the On-Call Ortho Resident For medical emergencies, please call 911. Follow up Contact Information: [facility] Orthopedic Surgery office contact information: [facility] ([facility]) [address], [place]), [address] [place] [address] Visit our website at [email or web address] for information about our practice and an interactive health encyclopedia. Please visit [email or web address] to access your health record, ask questions, request medication refills, and request appointments for non-urgent needs after you have configured your [employer] account. If you do not currently have access, please contact one of our staff members or call [phone]. [facility] documented in this encounter Medications at Time [...] 25 year old, male : 2000 CSN: [id number] History Patient seen and examined in pre-op [...] HISTORY OF Negative Medical History Unspecified asthma(493.90) ([facility]) exercise induced - uses inhaler [2] Past Surgical History: Procedure Laterality Date COLONOSCOPY WITH BIOPSY 12/04/2015 COLONOSCOPY BIOPSY ENDOSCOPY, UPPER 12/04/2015 ENDOSCOPY GI UPPER WITH BIOPSY NEGATIVE SURGICAL HISTORY OPEN REDUCTION, ANKLE Left 03/31/2015 Left; OPEN REDUCTION INTERNAL FIXATION LEFT MEDIAL MALLEOLUS, SHORT LEG CAST [3] No Known Allergies [4] No current facility-administered medications for this encounter. [facility] documented in this encounter OR Notes * [...] Role: * Nathan De DO - Primary Industrial Machine Operator(s): * No surgical staff found * Anesthesia Type: general ETT Complications: none Findings: Right comminuted medial cuneiform fracture treated with bridge plate fixation EBL: blood loss of 25 ml Urine Output : none IV Fluid Intake: See Anesthesia's records Drains: * No LDAs found * Specimen(s): * No specimens in log * Implant(s): Implant Name Type Inv. Item Serial No. Aquatic Performer Lot No. LRB No. Used Action JIMMY Screw 2.7Mm 16Mm T8 Cortx V Ss Nonste JIMMY Screw 2.7Mm 16Mm T8 Cortx V Ss Nonste Synthes [facility] Right1 Implanted JIMMY Screw 2.7Mm [...] Synthes VOLT 2.7mm x 36mm screw Synthes [facility] Right 1 Implanted Synthes VOLT 2.7mm x 40mm screw Synthes [facility] Right 1 Implanted Synthes VOLT T-plate 3 hole head [employer] [facility] Right 1 Implanted Sanchez Moss MD Cosigned by Nathan De DO at 07/08/2025 2:38 PM [facility] documented in this encounter Plan of Treatment Upcoming Encounters Date Type Department Care Team (Late st Contact Info) Description 07/12/2025 10:30 AM [facility] Office Visit [facility] - Orthopedics [address] [place] [address] [place] [address] Nathan De, [address] [facility] [place] [address] Scheduled Procedures Name Priority Associated Diagnoses Date/Ti me OPEN REDUCTION INTERNAL FIXATION (ORIF) TARSAL/METATARSAL Lisfranc's dislocation, right, initial encounter Nondisplaced fracture of medial cuneiform of right foot, initial encounter for closed fracture 07/08/2025 9:06 AM [facility] documented as of this encounter Procedures Procedure Name Priority Date/Time Associated Diagnosis Comments [place] [facility]ETTE SURGERY Routine 07/08/2025 11:11 AM [facility] Lisfranc's dislocation, right, initial encounter documented in this encounter Results * [facility] (07/08/2025 11:11 AM [facility]) Narrative [facility] - 07/08/2025 11:54 AM [facility] Fluoroscopy was used for this exam in the OR. Please see the Operative report. us Nathan De DO FLUOROSCOPY ORDERABLES Final R esult [facility] documented in this encounter Visit Diagnoses Diagnosis Lisfranc's dislocation, right, initial encounter- Primary Lisfranc's dislocation, right, initial encounter Nondisplaced fracture of medial cuneiform of right foot, initial encounter for closed fracture Nondisplaced fracture of medial cuneiform of right foot, initial encounter for closed fracture Lisfranc's dislocation, right, initial encounter Nondisplaced fracture [...] intake., Pre-op $ Given 07/08/2025 7:48 AM [facility] 1,000 mg acetaminophen (Tylenol) tablet 1,000 mg [...] at 1539 $ Given 07/08/2025 1:32 PM [facility] 5 mg fentaNYL (PF) (Sublimaze) injection 25 [...] intake., PACU $ Given 07/08/2025 12:40 PM [facility] 50 mcg $ Given 07/08/2025 12:20 PM [facility] 50 mcg $ Given 07/08/2025 12:00 PM [facility] 50 mcg hydrALAZINE (Apresoline) injection 5 mg [...] intake., PACU $ Given 07/08/2025 12:51 PM [facility] 0.5 mg $ Given 07/08/2025 12:10 PM [facility] 0.5 mg $ Given 07/08/2025 11:40 AM [facility] 0.5 mg labetalol (Normodyne; Trandate) injection 5 mg 5 mg, Intravenous, POST-OP MULTIPLE, 4 doses, Starting on Fri07/08/25 at 1143, Until Fri07/08/25 at 153, First Choice, hold if heart rate is [...] at 1133, Pre-op Restarted 07/08/2025 10:45 AM [facility] $ New Bag/Syringe 07/08/2025 7:45 AM [facility] 20 mL/ hr naloxone (Narcan) injection 0.04 [...] on Fri07/08/25 at 1247, Until Fri07/08/25 at 153, Patient preference for lesser PRN pain meds [...] Post-opIndications:Acute Pain $ Given 07/08/2025 2:07 PM [facility] 5 mg prochlorperazine (Compazine) injection 10 mg 10 mg, Intravenous, ONCE PRN, nausea/vomiting, 1 dose, Starting on Fri07/08/25 at 1143, Until Fri07/08/25 at 1539, Second choice, use if first choice was ineffective., PACU documented in this encounter Active and Recently Administered Medications Times are shown in [facility]. Scheduled Medication Order 07/06/2025 07/07/2025 07/08/2025 acetaminophen [...] PACU documented in this encounter Care Teams Vice President Business Development Relationship Specialty Start Date End Date Bin Fernandez MD [address] [place] [address] PCP - General Pediatrics 11/24/13 documented as of this encounter
--- OUTSIDE RECORDS SUMMARY | 2025-07-08 09:31 | XMS_ITS | Encounter Summary ---
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 Intravenous, PRN, Starting on Fri07/08/25 at 0930, Until Fri07/08/25 at 1136, Anesthesia Intra-op $ Given 07/08/2025 10:38 AM 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 4 mcg $ Given 07/08/2025 10:33 AM 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 4 mcg $ Given 07/08/2025 10:28 AM 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 4 mcg fentaNYL (PF) (Sublimaze) injection Intravenous, PRN, Starting on Fri07/08/25 at 0942, Until Fri07/08/25 at 1136, Anesthesia Intra-op $ Given 07/08/2025 9:42 AM 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 100 mcg HYDROmorphone (Dilaudid) injection Intravenous, PRN, Starting on Fri07/08/25 at 1025, Until Fri07/08/25 at 1136, Anesthesia Intra-op $ Given 07/08/2025 11:23 AM 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 0.4 mg $ Given 07/08/2025 11:07 AM 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 0.4 mg $ Given 07/08/2025 10:25 AM 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 0.8 mg isolyte-S pH 7.4 infusion Intravenous, CONTINUOUS PRN, Starting on Fri07/08/25 at 1049, Until Fri07/08/25 at 1136, Anesthesia Intra-op $ New Bag/Syringe 07/08/2025 10:49 AM CS T lactated ringers infusion at 20 mL/hr, Intravenous, PRE-OP CONTINUOUS, Starting on Fri07/08/25 at 0730, Until Fri07/08/25 at 1133, Pre-op Restarted 07/08/2025 10:45 AM 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 $ New Bag/Syringe 07/08/2025 7:45 AM 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 20 mL/ hr lidocaine HCl (PF) (Xylocaine MPF) 2 % injection Intravenous, PRN, Starting on Fri07/08/25 at 0942, Until Fri07/08/25 at 1136, Anesthesia Intra-op $ Given 07/08/2025 9:42 AM 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 60 mg midazolam (Versed) injection Intravenous, PRN, Starting on Fri07/08/25 at 0927, Until Fri07/08/25 at 1137, Anesthesia Intra-op $ Given 07/08/2025 9:27 AM 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 2 mg ondansetron (Zofran) injection Intravenous, PRN, Starting on Fri07/08/25 at 1110, Until Fri07/08/25 at 1136, Anesthesia Intra-op $ Given 07/08/2025 11:10 AM 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 4 mg propofol (Diprivan) injection Intravenous, PRN, Starting on Fri07/08/25 at 0943, Until Fri07/08/25 at 1136, Anesthesia Intra-op $ Given 07/08/2025 9:43 AM 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 120 mg rocuronium (Zemuron) injection Intravenous, PRN, Starting on Fri07/08/25 at 0944, Until Fri07/08/25 at 1136, Anesthesia Intra-op $ Given 07/08/2025 10:34 AM 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 10 mg $ Given 07/08/2025 9:48 AM 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 20 mg $ Given 07/08/2025 9:44 AM 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 50 mg sugammadex (Bridion) injection Intravenous, PRN, Starting on Fri07/08/25 at 1131, Until Fri07/08/25 at 1136, Anesthesia Intra-op $ Given 07/08/2025 11:25 AM 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 200 mg documented in this encounter Care Teams Petrol Tanker Driver Relationship Specialty Start Date End Date Bin Fernandez MD [address] [place] [id number] PCP - General Pediatrics 11/24/13 documented as of this encounter
--- OUTSIDE RECORDS SUMMARY | 2025-07-08 22:46 | XMS_ITS | Encounter Summary ---
Author Organization [facility] Health Address [address] [place] [address] Care Team Providers Care Contact Center Specialist Name Role Phone Bin Fernandez MD Primary Care Provider [phone] Encounter Details Date Type Department Care Team (Latest Contact Info) Description 07/08/2025 Travel Social History Tobacco Use Types Packs/Day Years [...] on file Legal Sex Male 5:38 AM PATIENT COORDINATOR Gender Identity Not on file Sexual Orientation [...] Lashon Domínguez RN documented in this encounter Plan of Treatment Upcoming Encounters Date Type Department Care Team (Late st Contact Info) Description 07/12/2025 10:30 AM PATIENT COORDINATOR Office Visit [facility] - Orthopedics [address] [place] [address], [place] [place] [address] Nathan De, [address] [place] [address] Scheduled Procedures Name Priority Associated Diagnoses Date/Ti me OPEN REDUCTION INTERNAL FIXATION (ORIF) TARSAL/METATARSAL Lisfranc's dislocation, right, initial encounter Nondisplaced fracture of medial cuneiform of right foot, initial encounter for closed fracture 07/08/2025 9:06 AM PATIENT COORDINATOR documented as of this encounter Visit Diagnoses Not on filedocumented in this encounter Care Teams Contact Center Specialist Relationship Specialty Start Date End Date Bin Fernandez MD [address] [place] [address] PCP - General Pediatrics 11/24/13 documented as of this encounter
--- OUTSIDE RECORDS SUMMARY | 2025-07-08 22:47 | XMS_ITS | Clinical Summary ---
Author Organization [facility] Address [address] [place] [address] Care Team Providers Care Case Packer And Sealer Name Role Phone Bin Fernandez MD Primary Care Provider [phone] Source Comments [facility],non-owned Affiliates and Associated Physician Practices is amultiple site organization consisting of ambulatory clinics and hospital sitesin [place] and [place]. This disclosure is being madepursuant to the Care Everywhere program and may not contain all information available regarding this patient. Last updated 18.[facility] Allergies No known active allergies Medications * Be aware that medications may not be up to date on this document. Alwaysverify current medications with the patient. albuterol HFA (PROVENTIL;EDILSON TOLIN;PROAIR) 108 (90 BASE) MCG/ACT inhaler Inhale 2 (two) puffs by mouth every 6 hours as needed Active aspirin EC (Ecotrin) 81 MG tablet Take 1 (one) tablet by mouth 2 times daily for 35 days 70 tablet 07/08/20 25 025 Active oxyCODONE, immediate release, (Roxicodone) 5 MG tabletIndicati ons:Nondisplac ed fracture of medial cuneiform of right foot, initial encounter for closed fracture Take 1 (one) tablet by mouth every 6 hours as needed for pain 28 tablet 07/08/20 25 Active polyethylene glycol 3350 (MiraLax) 17 g packetIndicati ons:Constipati on Take 17 (seventeen) g by mouth once daily as needed for constipation Narcotics can cause constipation. Please take while taking narcotic pain medications to avoid constipation. Do not take if having loose stools. Reasons: Constipation 07/08/20 Active acetaminophen (Tylenol) 500 MG tablet Take 2 (two) tablets by mouth every 6 hours as needed for pain (mild pain) Maximum allowable Acetaminophen amount = 4 Grams (4000 mg) / 24 hours. 07/08/20 Active cyclobenzaprin e (Flexeril) 5 MG tablet Take 1 (one) tablet by mouth 3 times daily as needed 30 tablet 07/08/20 Active ondansetron, disintegrating , (Zofran ODT) 4 MG tablet Take 1 (one) tablet by mouth every 6 hours as needed for nausea/vomiting Allow tablet to dissolve on the tongue 12 tablet 07/08/20 Active aspirin EC (Ecotrin) 81 MG tablet Take 1 (one) tablet by mouth 2 times daily 60 tablet 06/29/20 025 Discontin ued(Tx Complete) HYDROcodone-ac etaminophen (Hospers) 5-325 MG tabletIndicati ons:Foot fracture, right, closed, initial encounter Take 1 (one) tablet by mouth every 6 hours as needed for Pain 12 tablet 06/29/20 Discontin ued(Tx Complete) ibuprofen (Motrin) 600 MG tablet Take 1 (one) tablet by mouth every 6 hours as needed for Pain 30 tablet 06/29/20 025 Discontin ued(Tx Complete) Active Problems Problem Noted Date Diagnosed Date Lisfranc's dislocation, right, initial encounter 07/05/2025 Nondisplaced fracture of med ial cuneiform of right foot, initial encounter for closed fracture 06/29/2025 Scalp laceration 06/29/2025 Closed nondisplaced fracture of medial malleolus of left tibia with routine healing 10/10/2015 Nondisplaced fracture of bod y of left talus with routine healing 10/10/2015 Fractured medial malleolus 05/30/2015 Fracture of left talus 05/30/2015 Closed fracture of ankle 03/31/2015 Overview (05/25/2015): Encounters Date Type Department Care Team Description 07/08/2025 9:31 AM SENIOR DIRECTOR MARKETING Anesthesia Event [facility] [address] [place] [phone] Jonathan Woods MD Joseph, Andre, MD 07/08/2025 8:50 AM SENIOR DIRECTOR MARKETING - 07/08/2025 11:43 AM SENIOR DIRECTOR MARKETING Surgery [facility] [address] [place] [phone] Nathan De, DO OPEN REDUCTION INTERNAL FIXATION right TARSAL/METATARSAL, Lisfranc dislocation 07/08/2025 7:09 AM SENIOR DIRECTOR MARKETING - 07/08/2025 2:39 PM SENIOR DIRECTOR MARKETING Hospital Encounter [facility] [address] [place] [phone] Nathan De, DO Surgery General Discharge Disposition: Home or Self Care 07/08/2025 Travel 07/05/2025 11:30 AM SENIOR DIRECTOR MARKETING - 07/05/2025 11:59 PM SENIOR DIRECTOR MARKETING Hospital Encounter [facility] PAT [address] [place] [phone] Nathan De, DO Discharge Disposition: Home or Self Care 07/05/2025 10:45 AM SENIOR DIRECTOR MARKETING Office Visit [facility] [address] [place] [phone] Unknown, Provider Nathan De, DO Lisfranc's dislocation, right, initial encounter (Primary Dx); Nondisplaced fracture of medial cuneiform of right foot, initial encounter for closed fracture 07/05/2025 10:18 AM SENIOR DIRECTOR MARKETING - 07/05/2025 11:29 AM SENIOR DIRECTOR MARKETING Hospital Encounter [facility] DIAGNOSTIC RAD [facility] [address] [place] [address] Nathan De, DO Discharge Disposition: Home or Self Care 07/04/2025 Orders Only [facility] [address] [place] [phone] Nathan De, DO Nondisplaced fracture of medial cuneiform of right foot, initial encounter for closed fracture 06/29/2025 2:10 AM SENIOR DIRECTOR MARKETING - 06/29/2025 3:31 PM SENIOR DIRECTOR MARKETING Emergency [facility] EMERGENCY DEPARTMENT [address] [place] [address] Kayla Dominguez MD Bitter, Cindy C, MD Foot fracture, right, closed, initial encounter (Primary Dx); Fall, initial encounter; Laceration of scalp, initial encounter; Alcoholic intoxication without complication; Suicidal ideation Discharge Disposition: Home or Self Care 06/29/2025 Travel from Last 3 Months Immunizations Immunization Administration Dates Next Due TDAP (7yrs+) 06/29/2025 Family History Medical History Relation Name Comments Anesthesia Reaction Neg Hx Social History Tobacco Use Types Packs/Day Years Used Date Smoking Tobacco: Former Cigarettes 0 Q uit: 2015 Passive Smoke Exposure: Yes Smokeless Tobacco: Never Tobacco Cessation:Counseling Given: Not Answered Alcohol Use Standard Drinks/Week Comments Yes 8 [...] on file Legal Sex Male 5:38 AM SENIOR DIRECTOR MARKETING Gender Identity Not on file Sexual Orientation Not on file Last Filed Vital Signs Vital Sign Reading Time Taken Comments Blood Pressure 147/111 07/08/2025 2:15 PM SENIOR DIRECTOR MARKETING pt moving his arm during bp check Pulse 56 07/08/2025 2:15 PM SENIOR DIRECTOR MARKETING Temperature 36.7 C (98 F) 07/08/2025 1:00 PM SENIOR DIRECTOR MARKETING Respiratory Rate 11 07/08/2025 2:15 PM SENIOR DIRECTOR MARKETING Oxygen Saturation 95% 07/08/2025 2:1 5 PM SENIOR DIRECTOR MARKETING Inhaled Oxygen Concentration - - Weight 60.8 kg (134 lb) 07/08/2025 7:23 AM SENIOR DIRECTOR MARKETING Height 165.1 cm (5' 5) 07/08/2025 7:23 AM SENIOR DIRECTOR MARKETING Body Mass Index 22.3 07/08/2025 7:23 AM SENIOR DIRECTOR MARKETING Plan of Treatment Upcoming Encounters Date Type Department Care Team (Late st Contact Info) Description 07/12/2025 10:30 AM SENIOR DIRECTOR MARKETING Office Visit [facility] [address] [place] [address] Nathan De, [facility] [place] [address] Scheduled Procedures Name Priority Associated Diagnoses Date/Ti me OPEN REDUCTION INTERNAL FIXATION (ORIF) TARSAL/METATARSAL Lisfranc's dislocation, right, initial encounter Nondisplaced fracture of medial cuneiform of right foot, initial encounter for closed fracture 07/08/2025 9:06 AM SENIOR DIRECTOR MARKETING Health Maintenance Due Date Last Done Comments HIV SCREENING 2013 HEPATITIS C SCREENING 04/27/2016 HEPATITIS B VACCINE (1 of 3 - 19+ 3-dose series) 2017 DEPRESSION SCREENING 08/25/2024 COVID-19 VACCINE (1 - 2024-2 6 season) 2025 INFLUENZA VACCINE (#1) 2025 HPV VACCINE (1 - 3-dose SCDM series) 2025 DTAP/TDAP/TD VACCINES (2 - T d or Tdap) 06/29/2035 06/29/2025 ZOSTER VACCINE (1 of 2) 2048 HIB VACCINE Aged Out No longer eligi ble based on patient's age to complete this topic MENINGOCOCCAL (Group B) VACC INE SHARED DECISION-MAKING Aged Out No longer eligibl e based on patient's age to complete this topic MENINGOCOCCAL GROUPS A/C/Y/W VACCINE Aged Out No longer eligible b ased on patient's age to complete this topic PNEUMOCOCCAL VACCINE Aged Out No long er eligible based on patient's age to complete this topic Medical Devices Implanted Type Area Search Advertising Strategist Device Identifier Shelf Expiration Date Model / Serial / Lot 12mm 3.0 Headless Screw Implanted:Qty: 1 on 03/31/2015 by Nilo Sim MD at [facility] Left: Ankle [id number] / / Scrw Kita Eusebia Vlp Radu 3.5mm X 30mm Implanted:Qty: 1 on 03/31/2015 by Nilo Sim MD at [facility] Left: Ankle [employer] [id number] / / Scrw Kita Eusebia Vlp Radu 3.5mm X 32mm Implanted:Qty: 1 on 03/31/2015 by Nilo Sim MD at [facility] Left: Ankle [employer] [id number] / / Plate Fib Kita 3hole R 3.5mm Implanted:Qty: 1 on 03/31/2015 by Nilo Sim MD at [facility] Left: Ankle [employer] [id number] / / Scrw Kita Eusebia Vlp Radu 3.5mm X 36mm Implanted:Qty: 1 on 03/31/2015 by Nilo Sim MD at [facility] Left: Ankle [employer] [id number] / / Scrw Kita Eusebia Vlp 3.5mm X 10mm Implanted:Qty: 1 on 03/31/2015 by Nilo Sim MD at [facility] Left: Ankle [employer] [id number] / / Wire Trcr Tip 0.9mm X 150mm Implanted:Qty: 2 on 03/31/2015 by Nilo Sim MD at [facility] Left: Ankle [employer] [id number] / / Andrez Screw 2.7mm 16mm T8 Cortx V Ss Nonste Implanted:Qty: 1 on 07/08/2025 by Nathan De DO at [facility] Right: Foot [employer] [id number] BILL ONLY / / Andrez Screw 2.7mm 26mm T8 Cortx V Ss Nonste Implanted:Qty: 1 on 07/08/2025 by Nathan De DO at [facility] Right: Foot [employer] [id number] BILL ONLY / / Andrez Screw 2.7mm 28mm T8 Cortx V Ss Nonste Implanted:Qty: 1 on 07/08/2025 by Nathan De DO at [facility] Right: Foot [employer] [id number] BILL ONLY / / Andrez Screw 2.7mm 30mm T8 Cortx V Ss Nonste Implanted:Qty: 1 on 07/08/2025 by Nathan De DO at [facility] Right: Foot [employer] 02.527.130 BILL ONLY / / Synthes Volt 2.7mm X 36mm Screw Implanted:Qty: 1 on 07/08/2025 by Nathan De DO at [facility] Right: Foot [employer] [id number] / / Synthes Volt 2.7mm X 40mm Screw Implanted:Qty: 1 on 07/08/2025 by Nathan De DO at [facility] Right: Foot [employer] [id number] / / Synthes Volt T-Plate 3 Hole Head Implanted:Qty: 1 on 07/08/2025 by Nathan De DO at [facility] Right: Foot [employer] [id number] / / Explanted Type Area Search Advertising Strategist Device Identifier Shelf Expiration Date Model / Serial / Lot 18mm 3.0 Cannulated Screw Explanted:Qty: 1 on 03/31/2015 at [facility] Left: Ankle [id number] / / Andrez Screw 2.7mm 24mm T8 Cortx V Ss Nonste Explanted:Qty: 1 on 07/08/2025 by Nathan De DO at [facility] Right: Foot [employer] [id number] BILL ONLY / / Synthes Volt 2.7mm X 44mm Screw Explanted:Qty: 1 on 07/08/2025 by Nathan De DO at [facility] Right: Foot [employer] [id number] / / Wire K 2mm 150mm Troc Pnt Ss Fx Strl Explanted:Qty: 2 on 07/08/2025 by Nathan De DO at [facility] Right: Foot [employer] [id number] / / Procedures Procedure Name Priority Date/Time Associated Diagnosis Comments FL LIZZETTE SURGERY Routine 07/08/2025 11:11 AM SENIOR DIRECTOR MARKETING Lisfranc's dislocation, right, initial encounter ENDOTRACHEAL TUBE NOTE Routine 07/08/2025 9:50 AM SENIOR DIRECTOR MARKETING XR FOOT RIGHT 3VW OR MORE Routine 07/05/2025 10:24 AM SENIOR DIRECTOR MARKETING Nondisplaced fracture of medial cuneiform of right foot, initial encounter for closed fracture XR FOOT RIGHT WT BEARING 3VW STAT 06/29/2025 1:40 PM SENIOR DIRECTOR MARKETING Fall, initial encounter XR HAND RIGHT 3VW OR MORE STAT 06/29/2025 12:18 PM SENIOR DIRECTOR MARKETING Fall, initial encounter CT FACIAL BONES WO CONTRAST STAT 06/29/2025 10:45 AM SENIOR DIRECTOR MARKETING Fall, initial encounter CT FOOT RIGHT WO CONTRAST STAT 06/29/2025 9:23 AM SENIOR DIRECTOR MARKETING Fall, initial encounter XR KNEE RIGHT 2VW OR LESS STAT 06/29/2025 4:04 AM SENIOR DIRECTOR MARKETING Fall, initial encounter XR ANKLE RIGHT 3VW OR MORE STAT 06/29/2025 3:52 AM SENIOR DIRECTOR MARKETING Fall, initial encounter XR FOOT RIGHT 3VW OR MORE STAT 06/29/2025 3:51 AM SENIOR DIRECTOR MARKETING Fall, initial encounter CT LUMBAR SPINE WO CONTRAST STAT 06/29/2025 2:49 AM SENIOR DIRECTOR MARKETING Fall, initial encounter CT THORACIC SPINE WO CONTRAST STAT 06/29/2025 2:49 AM SENIOR DIRECTOR MARKETING Fall, initial encounter CT CHEST ABDOMEN PELVIS W CONT STAT 06/29/2025 2:49 AM SENIOR DIRECTOR MARKETING Fall, initial encounter CT CERVICAL SPINE WO CONTRAST STAT 06/29/2025 2:49 AM SENIOR DIRECTOR MARKETING Fall, initial encounter CT HEAD WO CONTRAST STAT 06/29/2025 2 :49 AM SENIOR DIRECTOR MARKETING Fall, initial encounter TYPE + SCREEN PANEL STAT 06/29/2025 2 :26 AM SENIOR DIRECTOR MARKETING VITAMIN D 25-HYDROXY Routine 06/29/2025 2:26 AM SENIOR DIRECTOR MARKETING PT-INR STAT 06/29/2025 2:26 AM SENIOR DIRECTOR MARKETING LIPASE BLOOD STAT 06/29/2025 2:26 AM SENIOR DIRECTOR MARKETING CBC W AUTO DIFFERENTIAL STAT 06/29/2025 2:26 AM SENIOR DIRECTOR MARKETING BASIC METABOLIC PANEL (CALCIUM TOTAL) STAT 06/29/2025 2:26 AM SENIOR DIRECTOR MARKETING ALCOHOL ETHYL BLOOD STAT 06/29/2025 2 :26 AM SENIOR DIRECTOR MARKETING XR PELVIS 1 OR 2VW Routine 06/29/2025 2: 23 AM SENIOR DIRECTOR MARKETING Fall, initial encounter XR CHEST 1VW PORTABLE STAT 06/29/2025 2:23 AM SENIOR DIRECTOR MARKETING Fall, initial encounter from Last 3 Months Results * FL Lizzette Surgery (07/08/2025 11:11 AM SENIOR DIRECTOR MARKETING) Narrative [facility] RADIOLOGY - 07/08/2025 11:54 AM SENIOR DIRECTOR MARKETING Fluoroscopy was used for this exam in the OR. Please see the Operative report. us Nathan De DO FLUOROSCOPY ORDERABLES Final R esult [facility] RADIOLOG[facility] * ETT LINE PERFORMABLE (07/08/2025 9:50 AM SENIOR DIRECTOR MARKETING) Narrative Lanny Beckwith DO - 07/08/2025 9:50 AM SENIOR DIRECTOR MARKETING Lanny Beckwith DO 07/08/2025 9:50 AM Endotracheal Tube Placement: Patient Location: OR. Intubation Event Date/Time: 07/08/2025 9:42 AM Procedure: intubation ([id number]) Procedure Section: Sedation: under general anesthesia. Indications [...] MD GENERAL ANESTHESIA ORDERABL ES Final Result * XR Foot Right 3Vw or More (07/05/2025 10:24 AM SENIOR DIRECTOR MARKETING) Only the most recent of2 resultswithin the time period is included. Anatomical Region Laterality Modality Ankle / Foot Radiographic Malika ging 07/05/2025 10:5 4 AM SENIOR DIRECTOR MARKETING Impressions 07/05/2025 10:56 AM SENIOR DIRECTOR MARKETING IMPRESSION: Fractures in a splint, unchanged in alignment. > Interpreting Provider: Gus Balderrama MD on 07/05/2025 10:56 AM Narrative 07/05/2025 10:56 AM SENIOR DIRECTOR MARKETING PROCEDURE: XR FOOT RIGHT 3VW OR MORE DATE/TIME OF EXAM: 07/05/2025 10:24 AM CLINICAL INFORMATION: None relevant/not provided if blank. Indication: S92.244A: Nondisplaced fracture of medial cuneiform of right foot, initial encounter for closed fracture Additional History: COMPARISON: 06/29/2025 FINDINGS: A splint is present obscuring bone and soft tissue detail. A mildly displaced fracture of the medial cuneiform is unchanged in alignment. Additional fractures of the cuneiforms and third metatarsal base reported previously are not well visualized on the current study but osseous alignment is grossly unchanged. There is soft tissue swelling. Procedure Note Gus Balderrama MD - 07/05/2025 PROCEDURE: XR FOOT RIGHT 3VW OR MORE DATE/TIME OF EXAM: 07/05/2025 10:24 AM CLINICAL INFORMATION: None relevant/not provided if blank. Indication: S92.244A: Nondisplaced fracture of medial cuneiform of right foot, initial encounter for closed fracture Additional History: COMPARISON: 06/29/2025 FINDINGS: A splint is present obscuring bone and soft tissue detail. A mildly displaced fracture of the medial cuneiform is unchanged in alignment. Additional fractures of the cuneiforms and third metatarsal basereported previously are not well visualized on the current study but osseous alignment is grossly unchanged. There is soft tissue swelling. IMPRESSION: Fractures in a splint, unchanged in alignment. > Interpreting Provider: Gus Balderrama MD on 07/05/2025 10:56 AM Nathan De DO DIAGNOSTIC IMAGING ORDERABLES Final Result * XR Foot Right Wt Bearing 3Vw (06/29/2025 1:40 PM SENIOR DIRECTOR MARKETING) Anatomical Region Laterality Modality Ankle / Foot Digital Radiogra phy 06/29/2025 1:50 PM SENIOR DIRECTOR MARKETING Narrative 06/29/2025 2:42 PM SENIOR DIRECTOR MARKETING PROCEDURE: XR FOOT RIGHT WT BEARING 3VW, DATE/TIME OF EXAM: 06/29/2025 1:41 PM, LOCATION [facility] INDICATION: W19.XXXA: Fall, initial encounter ADDITIONAL CLINICAL INFORMATION: Ordering Provider Reason For Exam: evaluate for james thompson Technologist Note: Additional: COMPARISON: Foot radiograph from 06/29/2025 at 3:36 AM FINDINGS/IMPRESSION: Midfoot fractures involving all cuneiforms and the base of the third metatarsal demonstrated on CT are partially visualized. Tarsometatarsal joints are in normal alignment. Soft tissue swelling around the mid foot. Report dictated by Cem Cartwright MD > Dictated by Cem Cartwright MD 06/29/2025 1:50 PM > Dictated by Refractory Technician I, Marcie Garcia MD have personally reviewed and interpreted this examination/study. > Interpreting Provider: Marcie Garcia MD on 06/29/2025 2:42 PM Procedure Note Marcie Garcia MD - 06/29/2025 PROCEDURE: XR FOOT RIGHT WT BEARING 3VW, DATE/TIME OF EXAM: 06/29/2025 1:41 PM, LOCATION [facility] INDICATION: W19.XXXA: Fall, initial encounter ADDITIONAL CLINICAL INFORMATION: Ordering Provider Reason For Exam: evaluate for james thompson Technologist Note: Additional: COMPARISON: Foot radiograph from 06/29/2025 at 3:36 AM FINDINGS/IMPRESSION: Midfoot fractures involving all cuneiforms and the base of the third metatarsal demonstrated on CT are partially visualized. Tarsometatarsal joints are in normal alignment. Soft tissue swellingaround the mid foot. Report dictated by Cem Cartwright MD > Dictated by Cem Cartwright MD 06/29/2025 1:50 PM > Dictated by Refractory Technician I, Marcie Garcia MD have personally reviewed and interpreted this examination/study. > Interpreting Provider: Marcie Garcia MD on 06/29/2025 2:42 PM Preethi Plummer MD DIAGNOSTIC IMAGING ORDERABLES Final Result * XR Hand Right 3Vw or More (06/29/2025 12:18 PM SENIOR DIRECTOR MARKETING) Anatomical Region Laterality Modality Wrist / Hand Digital Radiogra phy 06/29/2025 12:2 8 PM SENIOR DIRECTOR MARKETING Impressions 06/29/2025 12:33 PM SENIOR DIRECTOR MARKETING IMPRESSION: No acute osseous abnormality. > Interpreting Provider: Marcie Garcia MD on 06/29/2025 12:33 PM Narrative 06/29/2025 12:33 PM SENIOR DIRECTOR MARKETING PROCEDURE: XR HAND RIGHT 3VW OR MORE DATE/TIME OF EXAM: 06/29/2025 12:19 PM CLINICAL INFORMATION: None relevant/not provided if blank. Indication: W19.XXXA: Fall, initial encounter Additional History: COMPARISON: None. FINDINGS: 2 Tegaderms are superimposed on the metacarpals, partially obscuring bony structures. Within this limitation, there is no fracture or dislocation. Joint spaces are preserved. Bone density is normal. There is soft tissue swelling. Procedure Note Marcie Garcia MD - 06/29/2025 PROCEDURE: XR HAND RIGHT 3VW OR MORE DATE/TIME OF EXAM: 06/29/2025 12:19 PM CLINICAL INFORMATION: None relevant/not provided if blank. Indication: W19.XXXA: Fall, initial encounter Additional History: COMPARISON: None. FINDINGS: 2 Tegaderms are superimposed on the metacarpals, partially obscuringbony structures. Within this limitation, there is no fracture or dislocation. Joint spaces are preserved. Bone density is normal. There is soft tissue swelling. IMPRESSION: No acute osseous abnormality. > Interpreting Provider: Marcie Garcia MD on 06/29/2025 12:33 PM Preethi Plummer MD DIAGNOSTIC IMAGING ORDERABLES Final Result * CT Facial Bones Wo Contrast (06/29/2025 10:45 AM SENIOR DIRECTOR MARKETING) Anatomical Region Laterality Modality Head Computed Tomogra phy 06/29/2025 10:5 2 AM SENIOR DIRECTOR MARKETING Impressions 06/29/2025 12:27 PM SENIOR DIRECTOR MARKETING IMPRESSION: 1. An oblique acute fracture through the entire length of the right maxillary central incisor with anterior displacement of the tooth and its fragments from its original insertion site in the maxilla. There is a small lucency at the original insertion site within the maxillary bone, suggesting a radicular cyst or periapical abscess. 2. Severe periodontal disease with multiple dental caries and periapical lucencies that may represent particle abscesses. 3. Up to moderate acute sinusitis, most pronounced in the right maxillary sinus. > Dictated by Refractory Technician I, Too Hicks MD have personally reviewed and interpreted this examination/study. > Interpreting Provider: Too Hicks MD on 06/29/2025 12:27 PM Narrative 06/29/2025 12:27 PM SENIOR DIRECTOR MARKETING PROCEDURE: CT FACIAL BONES WO CONTRAST, DATE/TIME OF EXAM: 06/29/2025 10:46 AM, LOCATION [facility] INDICATION: W19.XXXA: Fall, initial encounter ADDITIONAL CLINICAL INFORMATION: Ordering Provider Reason For Exam: r/o fracture/ TMJ dislocation Technologist Note: Additional: COMPARISON: None. EXAMINATION: Computed tomography (CT) of the maxillofacial bones, orbits, and paranasal sinuses without contrast TECHNIQUE: CT of the maxillofacial bones, orbits, and paranasal sinuses was performed without intravenous contrast according to standard protocol. FINDINGS: Evaluation partially degraded by streaking artifact An oblique acute fracture through the entire length of the right maxillary central incisor with anterior displacement of the tooth and its fragments from its original insertion site in the maxilla. There is a small lucency at the original insertion site within the maxillary bone, suggesting a radicular cyst or periapical abscess. Severe periodontal disease with multiple dental caries and periapical lucencies that may represent particle abscesses. The orbits including the globes, optic nerves, retrobulbar fat and extraocular muscles appear normal. There is moderate paranasal sinus disease primarily within the maxillary sinuses and around the nasal septum. The hard palate, mandible, and temporomandibular joints appear normal. The partially imaged mastoid air cells are clear. Procedure Note Too Hicks MD - 06/29/2025 PROCEDURE: CT FACIAL BONES WO CONTRAST, DATE/TIME OF EXAM: 06/29/2025 10:46 AM, LOCATION [facility] INDICATION: W19.XXXA: Fall, initial encounter ADDITIONAL CLINICAL INFORMATION: Ordering Provider Reason For Exam: r/o fracture/ TMJ dislocation Technologist Note: Additional: COMPARISON: None. EXAMINATION: Computed tomography (CT) of the maxillofacial bones,orbits, and paranasal sinuses without contrast TECHNIQUE: CT of the maxillofacial bones, orbits, and paranasal sinuseswas performed without intravenous contrast according to standard protocol. FINDINGS: Evaluation partially degraded by streaking artifact An oblique acute fracture through the entire length of the rightmaxillary central incisor with anterior displacement of the tooth and itsfragments from its original insertion site in the maxilla. There is a smalllucency at the original insertion site within the maxillary bone, suggesting a radicular cyst or periapical abscess. Severe periodontal disease with multiple dental caries and periapical lucencies that may represent particle abscesses. The orbits including the globes, optic nerves, retrobulbar fat and extraocular muscles appear normal. There is moderate paranasal sinus disease primarily within the maxillary sinuses and around the nasalseptum. The hard palate, mandible, and temporomandibular joints appear normal.The partially imaged mastoid air cells are clear. IMPRESSION: 1. An oblique acute fracture through the entire length of the right maxillary central incisor with anterior displacement of the tooth andits fragments from its original insertion site in the maxilla. There is asmall lucency at the original insertion site within the maxillary bone, suggesting a radicular cyst or periapical abscess. 2. Severe periodontal disease with multiple dental caries and periapical lucencies that may represent particle abscesses. 3. Up to moderate acute sinusitis, most pronounced in the rightmaxillary sinus. > Dictated by Refractory Technician I, Too Hicks MD have personally reviewed and interpreted this examination/study. > Interpreting Provider: Too Hicks MD on 06/29/2025 12:27 PM Preethi Plummer MD CT ORDERABLES Final Result * CT Foot Right Wo Contrast (06/29/2025 9:23 AM SENIOR DIRECTOR MARKETING) Anatomical Region Laterality Modality Ankle / Foot Computed Tomogra phy 06/29/2025 9:39 AM SENIOR DIRECTOR MARKETING Impressions 06/29/2025 10:26 AM SENIOR DIRECTOR MARKETING IMPRESSION: Several fractures at the midfoot-forefoot junction including of all 3 cuneiforms and the third metatarsal base. > Dictated by Dariel Vega MD (Refractory Technician), 06/29/2025 10:11 AM. > Dictated by Refractory Technician I, Gus Balderrama MD have personally reviewed and interpreted this examination/study. > Interpreting Provider: Gus Balderrama MD on 06/29/2025 10:26 AM Narrative 06/29/2025 10:26 AM SENIOR DIRECTOR MARKETING PROCEDURE: CT FOOT RIGHT WO CONTRAST, DATE/TIME OF EXAM: 06/29/2025 9:23 AM, LOCATION [facility] INDICATION: W19.XXXA: Fall, initial encounter ADDITIONAL CLINICAL INFORMATION: Ordering Provider Reason For Exam: medial cunieform fracture Technologist Note: Additional: COMPARISON: Right foot x-ray 06/29/2025 TECHNIQUE: Axial CT images of the right foot. Coronal and sagittal reformatted images were submitted. FINDINGS: Bones: There is a comminuted and mildly displaced fracture of the medial cuneiform with extension to the proximal and distal articular surfaces. There is an additional mildly displaced fracture of the inferior aspect of the intermediate cuneiform with extension to the proximal articular surface. There is a small nondisplaced fracture at the anterior-plantar aspect of the lateral cuneiform (series 5 image 57). There is a nondisplaced fracture of the third metatarsal base. There is a 1 mm fracture fragment at the medial aspect of the first tarsometatarsal joint which is likely arising from the medial cuneiform, although a first metatarsal base fracture cannot be entirely excluded (series 3 image 164). The tarsometatarsal joints are normally aligned. Soft tissues: There is soft tissue edema near the fracture sites. Procedure Note Gus Balderrama MD - 06/29/2025 PROCEDURE: CT FOOT RIGHT WO CONTRAST, DATE/TIME OF EXAM: 59:23 AM, LOCATION [facility] INDICATION: W19.XXXA: Fall, initial encounter ADDITIONAL CLINICAL INFORMATION: Ordering Provider Reason For Exam: medial cunieform fracture Technologist Note: Additional: COMPARISON: Right foot x-ray 06/29/2025 TECHNIQUE: Axial CT images of the right foot. Coronal and sagittal reformatted images were submitted. FINDINGS: Bones: There is a comminuted and mildly displaced fracture of the medial cuneiform with extension to the proximal and distal articular surfaces. There is an additional mildly displaced fracture of the inferior aspectof the intermediate cuneiform with extension to the proximal articular surface. There is a small nondisplaced fracture at the anterior-plantar aspect of the lateral cuneiform (series 5 image 57). There is a nondisplaced fracture of the third metatarsal base. There is a 1 mm fracture fragment at the medial aspect of the first tarsometatarsaljoint which is likely arising from the medial cuneiform, although a first metatarsal base fracture cannot be entirely excluded (series 3 [id number]). The tarsometatarsal joints are normally aligned. Soft tissues: There is soft tissue edema near the fracture sites. IMPRESSION: Several fractures at the midfoot-forefoot junction includingof all 3 cuneiforms and the third metatarsal base. > Dictated by Dariel Vega MD (Refractory Technician), 06/29/2025 10:11 AM. > Dictated by Refractory Technician I, Gus Balderrama MD have personally reviewed and interpreted this examination/study. > Interpreting Provider: Gus Balderrama MD on 06/29/2025 10:26 AM Preethi Plummer MD CT ORDERABLES Final Result * XR Knee Right 2Vw or Less (06/29/2025 4:04 AM SENIOR DIRECTOR MARKETING) Anatomical Region Laterality Modality Lower Extremity Digital Radiogra phy 06/29/2025 4:23 AM SENIOR DIRECTOR MARKETING Impressions 06/29/2025 7:11 AM SENIOR DIRECTOR MARKETING IMPRESSION: Comminuted fracture of the medial cuneiform bone. Report dictated by Mukund López MD, (vice president business development). > Dictated by Mukund López MD 06/29/2025 4:23 AM > Dictated by Refractory Technician Deepika, Natividad Loya MD have personally reviewed and interpreted this examination/study. > Interpreting Provider: Natividad Loya MD on 06/29/2025 7:11 AM Narrative 06/29/2025 7:11 AM SENIOR DIRECTOR MARKETING PROCEDURE: XR KNEE RIGHT 2VW OR LESS, XR ANKLE RIGHT 3VW OR MORE, XR FOOT RIGHT 3VW OR MORE, DATE/TIME OF EXAM: 06/29/2025 4:04 AM, [facility] INDICATION: W19.XXXA: Fall, initial encounter ADDITIONAL CLINICAL INFORMATION: Ordering Provider Reason For Exam: Technologist Note: Additional: COMPARISON: None. FINDINGS: Right knee: The osseous structures are intact and well aligned without acute fracture or dislocation. The knee joint space is preserved. No joint effusion is seen. Right ankle: The osseous structures are intact and well aligned without acute fracture or dislocation. The ankle mortise is intact. No soft tissue swelling is present. Right foot: Comminuted fracture of the medial cuneiform bone involving the distal articular surface and minimally displacement. The Lisfranc joint space are grossly maintained. The osseous structures are otherwise intact and well aligned without acute fracture or dislocation. The joint spaces are preserved. Soft tissue swelling noted along the medial side of the foot. Procedure Note Natividad Loya MD - 06/29/2025 PROCEDURE: XR KNEE RIGHT 2VW OR LESS, XR ANKLE RIGHT 3VW OR MORE, XRFOOT RIGHT 3VW OR MORE, DATE/TIME OF EXAM: 06/29/2025 4:04 AM, LOCATION [facility] INDICATION: W19.XXXA: Fall, initial encounter ADDITIONAL CLINICAL INFORMATION: Ordering Provider Reason For Exam: Technologist Note: Additional: COMPARISON: None. FINDINGS: Right knee: The osseous structures are intact and well aligned without acutefracture or dislocation. The knee joint space is preserved. No joint effusion is seen. Right ankle: The osseous structures are intact and well aligned without acutefracture or dislocation. The ankle mortise is intact. No soft tissue swelling is present. Right foot: Comminuted fracture of the medial cuneiform bone involving the distal articular surface and minimally displacement. The Lisfranc joint spaceare grossly maintained. The osseous structures are otherwise intact and well aligned withoutacute fracture or dislocation. The joint spaces are preserved. Soft tissue swelling noted along the medial side of the foot. IMPRESSION: Comminuted fracture of the medial cuneiform bone. Report dictated by Mukund López MD, (vice president business development). > Dictated by Mukund López MD 06/29/2025 4:23 AM > Dictated by Refractory Technician Natividad Poe MD have personally reviewed and interpreted this examination/study. > Interpreting Provider: Natividad Loya MD on 57:11 AM Randall Beltre MD DIAGNOSTIC IMAGING ORDERABLES Final Result * XR Ankle Right 3Vw or More (06/29/2025 3:52 AM SENIOR DIRECTOR MARKETING) Anatomical Region Laterality Modality Lower Extremity Digital Radiogra phy 06/29/2025 4:23 AM SENIOR DIRECTOR MARKETING Impressions 06/29/2025 7:11 AM SENIOR DIRECTOR MARKETING IMPRESSION: Comminuted fracture of the medial cuneiform bone. Report dictated by Mukund López MD, (vice president business development). > Dictated by Mukund López MD 06/29/2025 4:23 AM > Dictated by Refractory Technician Natividad Poe MD have personally reviewed and interpreted this examination/study. > Interpreting Provider: Natividad Loya MD on 06/29/2025 7:11 AM Narrative 06/29/2025 7:11 AM SENIOR DIRECTOR MARKETING PROCEDURE: XR KNEE RIGHT 2VW OR LESS, XR ANKLE RIGHT 3VW OR MORE, XR FOOT RIGHT 3VW OR MORE, DATE/TIME OF EXAM: 06/29/2025 4:04 AM, LOCATION [facility] INDICATION: W19.XXXA: Fall, initial encounter ADDITIONAL CLINICAL INFORMATION: Ordering Provider Reason For Exam: Technologist Note: Additional: COMPARISON: None. FINDINGS: Right knee: The osseous structures are intact and well aligned without acute fracture or dislocation. The knee joint space is preserved. No joint effusion is seen. Right ankle: The osseous structures are intact and well aligned without acute fracture or dislocation. The ankle mortise is intact. No soft tissue swelling is present. Right foot: Comminuted fracture of the medial cuneiform bone involving the distal articular surface and minimally displacement. The Lisfranc joint space are grossly maintained. The osseous structures are otherwise intact and well aligned without acute fracture or dislocation. The joint spaces are preserved. Soft tissue swelling noted along the medial side of the foot. Procedure Note Natividad Loya MD - 06/29/2025 PROCEDURE: XR KNEE RIGHT 2VW OR LESS, XR ANKLE RIGHT 3VW OR MORE, XRFOOT RIGHT 3VW OR MORE, DATE/TIME OF EXAM: 06/29/2025 4:04 AM, LOCATION [facility] INDICATION: W19.XXXA: Fall, initial encounter ADDITIONAL CLINICAL INFORMATION: Ordering Provider Reason For Exam: Technologist Note: Additional: COMPARISON: None. FINDINGS: Right knee: The osseous structures are intact and well aligned without acutefracture or dislocation. The knee joint space is preserved. No joint effusion is seen. Right ankle: The osseous structures are intact and well aligned without acutefracture or dislocation. The ankle mortise is intact. No soft tissue swelling is present. Right foot: Comminuted fracture of the medial cuneiform bone involving the distal articular surface and minimally displacement. The Lisfranc joint spaceare grossly maintained. The osseous structures are otherwise intact and well aligned withoutacute fracture or dislocation. The joint spaces are preserved. Soft tissue swelling noted along the medial side of the foot. IMPRESSION: Comminuted fracture of the medial cuneiform bone. Report dictated by Mukund López MD, (vice president business development). > Dictated by Mukund López MD 06/29/2025 4:23 AM > Dictated by Refractory Technician I, Natividad Loya MD have personally reviewed and interpreted this examination/study. > Interpreting Provider: Natividad Loya MD on 57:11 AM Randall Beltre MD DIAGNOSTIC IMAGING ORDERABLES Final Result * CT CHEST ABDOMEN PELVIS W CONT - Abdomen-pelvis trauma, blunt or penetrating (06/29/2025 2:49 AM SENIOR DIRECTOR MARKETING) Anatomical Region Laterality Modality Chest, Abdomen, Pelvis Computed Tomography 06/29/2025 2:58 AM SENIOR DIRECTOR MARKETING Impressions 06/29/2025 6:44 AM SENIOR DIRECTOR MARKETING Impression: 1.No acute visceral, vascular, or osseus injury identified in the chest, abdomen, or pelvis. > Dictated by Adolfo Coronel MD (vice president business development). > Dictated by Adolfo Coronel MD 06/29/2025 2:58 AM > Dictated by Refractory Technician I, Natividad Loya MD have personally reviewed and interpreted this examination/study. > Interpreting Provider: Natividad Loya MD on 06/29/2025 6:44 AM Narrative 06/29/2025 6:44 AM SENIOR DIRECTOR MARKETING PROCEDURE: CT CHEST ABDOMEN PELVIS W CONT, DATE/TIME OF EXAM: 06/29/2025 2:53 AM, LOCATION [facility] INDICATION: W19.XXXA: Fall, initial encounter ADDITIONAL CLINICAL INFORMATION: Ordering Provider Reason For Exam: Technologist Note: Additional: COMPARISON: None. TECHNIQUE: CT of the chest, abdomen, and pelvis was performed after the uneventful administration of 100 mL of Isovue 370 intravenous contrast according to standard protocol. Findings: Chest: Lower Neck and Axillae: Normal. Lungs: No pulmonary parenchymal or airway process is present. No suspicious pulmonary nodules are identified. No pleural fluid or pneumothorax is present. Heart and Pericardium: The cardiac chambers are normal in size. No pericardial fluid or thickening is present. Mediastinum and [place]: No mediastinal hemorrhage is present. No enlarged lymph nodes are present. Thoracic Vasculature: No vascular abnormality is present. Abdomen/pelvis: Liver: A subcentimeter hypoattenuating hepatic lesion is too small to characterize, but likely represents a hepatic cyst. Gallbladder and Bile Ducts: Normal. Spleen: Normal. Pancreas: Normal. Adrenals: Normal. Kidneys: Normal. Gastrointestinal: Small hiatal hernia. The stomach and visualized loops of large and small bowel are unremarkable. Normal appendix. Mesentery/Peritoneum/Retroperitoneum: No free intraperitoneal air. No free fluid in the abdomen or pelvis. Bladder: Normal. Tiny urachal remnant at the bladder dome. Reproductive Organs: The prostate is normal. Abdominal Vasculature: No vascular abnormality is present. Bones: Bone windows demonstrate no suspicious lytic or blastic lesions. The visible osseous structures are intact. Soft tissues: Small umbilical hernia containing only mesenteric fat. Procedure Note Natividad Loya MD - 06/29/2025 PROCEDURE: CT CHEST ABDOMEN PELVIS W CONT, DATE/TIME OF EXAM:06/29/2025 2:53 AM, LOCATION [facility] INDICATION: W19.XXXA: Fall, initial encounter ADDITIONAL CLINICAL INFORMATION: Ordering Provider Reason For Exam: Technologist Note: Additional: COMPARISON: None. TECHNIQUE: CT of the chest, abdomen, and pelvis was performed after the uneventful administration of 100 mL of Isovue 370 intravenous contrast according to standard protocol. Findings: Chest: Lower Neck and Axillae: Normal. Lungs: No pulmonary parenchymal or airway process is present. No suspicious pulmonary nodules are identified. No pleural fluid or pneumothorax is present. Heart and Pericardium: The cardiac chambers are normal in size. No pericardial fluid orthickening is present. Mediastinum and [place]: No mediastinal hemorrhage is present. No enlarged lymph nodes arepresent. Thoracic Vasculature: No vascular abnormality is present. Abdomen/pelvis: Liver: A subcentimeter hypoattenuating hepatic lesion is too small to characterize, but likely represents a hepatic cyst. Gallbladder and Bile Ducts: Normal. Spleen: Normal. Pancreas: Normal. Adrenals: Normal. Kidneys: Normal. Gastrointestinal: Small hiatal hernia. The stomach and visualized loops of large and small bowel are unremarkable. Normal appendix. Mesentery/Peritoneum/Retroperitoneum: No free intraperitoneal air. No free fluid in the abdomen or pelvis. Bladder: Normal. Tiny urachal remnant at the bladder dome. Reproductive Organs: The prostate is normal. Abdominal Vasculature: No vascular abnormality is present. Bones: Bone windows demonstrate no suspicious lytic or blastic lesions. The visible osseous structures are intact. Soft tissues: Small umbilical hernia containing only mesenteric fat. Impression: 1.No acute visceral, vascular, or osseus injury identified in the chest, abdomen, or pelvis. > Dictated by Adolfo Coronel MD (vice president business development). > Dictated by Adolfo Coronel MD 06/29/2025 2:58 AM > Dictated by Refractory Technician I, Natividad Loya MD have personally reviewed and interpreted this examination/study. > Interpreting Provider: Abddebbie Loya MD on 56:44 AM us Randall Beltre MD CT ORDERABLES Final Result * CT LUMBAR SPINE WO CONTRAST - T/L-spine trauma, Spine fracture (06/29/2025 2:49 AM SENIOR DIRECTOR MARKETING) Anatomical Region Laterality Modality Spine Computed Tomogra phy 06/29/2025 2:57 AM SENIOR DIRECTOR MARKETING Impressions 06/29/2025 8:56 AM SENIOR DIRECTOR MARKETING IMPRESSION: 1.No acute intracranial hemorrhage, midline shift, or significant mass effect. 2.No evidence of acute fracture in the cervical, thoracic, or lumbar spine. 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 > Dictated by Mukund López MD, (vice president business development). > Dictated by Mukund López MD 06/29/2025 2:57 AM > Dictated by Refractory Technician I, Azucena Christina MD have personally reviewed and interpreted this examination/study. > Interpreting Provider: Azucena Christina MD on 06/29/2025 8:56 AM Narrative 06/29/2025 8:56 AM SENIOR DIRECTOR MARKETING PROCEDURE: CT HEAD WO CONTRAST, CT LUMBAR SPINE WO CONTRAST, CT THORACIC SPINE WO CONTRAST, CT CERVICAL SPINE WO CONTRAST, DATE/TIME OF EXAM: 06/29/2025 2:53 AM, LOCATION [facility] INDICATION: W19.XXXA: Fall, initial encounter EXAMINATION: 1.Computed tomography (CT) of the head without contrast 2.CT of the cervical spine without contrast 3.CT of the thoracic spine without contrast 4.CT of the lumbar spine without contrast ADDITIONAL CLINICAL INFORMATION: Ordering Provider Reason For Exam: Technologist Note: Additional: TECHNIQUE: CT of the head and cervical spine was performed without contrast according to standard protocol. Reformatted axial, sagittal, and coronal images of the thoracic and lumbar spine were obtained by the technologist from a concurrently performed body CT and sent to the workstation for review. CT dose reduction technique was used, including Automated Exposure Control. COMPARISON: Brain CT from 03/22/2015 and brain MRI from 12/24/2013. FINDINGS: Head: No acute intra- or extra-axial fluid collections are identified. The ventricles are of normal size, shape, and morphology. The basilar cisterns are patent. No mass effect or midline shift is seen. The ly-white matter differentiation is normal. No acute calvarial fracture is identified. The orbits appear normal. Mucosal thickening and air-fluid levels are seen in the paranasal sinuses. The mastoid air cells are clear. No soft tissue abnormality is identified. Cervical spine: Mild levocurvature in the mid cervical region is likely positional. There is no spondylolisthesis. Vertebral bodies are normal in height without evidence of acute fracture. Small posterior marginal osteophytes are seen at multiple levels in the mid to lower cervical spine. The craniocervical junction is normal. There is mild degenerative disc disease. The central canal is moderately stenotic at C5-C6 and mildly stenotic at C6-C7. Stenosis at C5-C6 is due to a posterior disc osteophyte complex and ossification of the posterior longitudinal ligament. There are varying degrees of mild facet osteoarthritis. No uncovertebral hypertrophy is clearly appreciated. No high-grade foraminal narrowing is identified. No soft tissue abnormality is identified. Thoracic spine: The alignment is normal. Vertebral bodies are normal in height without evidence of acute fracture. Small marginal osteophytes and Schmorl's node are seen at multiple levels in the mid to lower thoracic spine. There is mild degenerative disc disease. No central canal stenosis is seen. The facets appear normal. No neural foraminal stenosis is seen. There is subsegmental atelectasis in the dependent portions of the lung bases. Lumbar spine: There is no scoliosis. Mild retrolisthesis is seen at L2-L3 and L5-S1. Vertebral bodies are normal in height without evidence of acute fracture. A small Schmorl's node is noted at the inferior L1 endplate. The intervertebral discs appear normal. No central canal stenosis is seen. The facets appear normal. No neural foraminal stenosis is seen. No soft tissue abnormality is identified. Procedure Note Azucena Christina MD - 06/29/2025 PROCEDURE: CT HEAD WO CONTRAST, CT LUMBAR SPINE WO CONTRAST, CTTHORACIC SPINE WO CONTRAST, CT CERVICAL SPINE WO CONTRAST, DATE/TIME OF EXAM: 06/29/2025 2:53 AM, LOCATION [facility] INDICATION: W19.XXXA: Fall, initial encounter EXAMINATION: 1.Computed tomography (CT) of the head without contrast 2.CT of the cervical spine without contrast 3.CT of the thoracic spine without contrast 4.CT of the lumbar spine without contrast ADDITIONAL CLINICAL INFORMATION: Ordering Provider Reason For Exam: Technologist Note: Additional: TECHNIQUE: CT of the head and cervical spine was performed withoutcontrast according to standard protocol. Reformatted axial, sagittal, and coronal images of the thoracic and lumbar spine were obtained by thetechnologist from a concurrently performed body CT and sent to the workstation for review. CT dose reduction technique was used, including AutomatedExposure Control. COMPARISON: Brain CT from 03/22/2015 and brain MRI from 12/24/2013. FINDINGS: Head: No acute intra- or extra-axial fluid collections are identified. The ventricles are of normal size, shape, and morphology. The basilar cisterns are patent. No mass effect or midline shift is seen. The ly-white matter differentiation is normal. No acute calvarial fracture is identified. The orbits appear normal. Mucosal thickening and air-fluid levels areseen in the paranasal sinuses. The mastoid air cells are clear. No soft tissue abnormality is identified. Cervical spine: Mild levocurvature in the mid cervical region is likely positional.There is no spondylolisthesis. Vertebral bodies are normal in height without evidence of acutefracture. Small posterior marginal osteophytes are seen at multiple levels in themid to lower cervical spine. The craniocervical junction is normal. There is mild degenerative disc disease. The central canal is moderately stenotic at C5-C6 and mildly stenotic at C6-C7. Stenosis at C5-C6 is dueto a posterior disc osteophyte complex and ossification of the posterior longitudinal ligament. There are varying degrees of mild facet osteoarthritis. No uncovertebral hypertrophy is clearly appreciated. No high-grade foraminal narrowing is identified. No soft tissue abnormality is identified. Thoracic spine: The alignment is normal. Vertebral bodies are normal in height without evidence of acutefracture. Small marginal osteophytes and Schmorl's node are seen at multiplelevels in the mid to lower thoracic spine. There is mild degenerative disc disease. No central canal stenosis isseen. The facets appear normal. No neural foraminal stenosis is seen. There is subsegmental atelectasis in the dependent portions of the lung bases. Lumbar spine: There is no scoliosis. Mild retrolisthesis is seen at L2-L3 and L5-S1. Vertebral bodies are normal in height without evidence of acute fracture.A small Schmorl's node is noted at the inferior L1 endplate. The intervertebral discs appear normal. No central canal stenosis isseen. The facets appear normal. No neural foraminal stenosis is seen. No soft tissue abnormality is identified. IMPRESSION: 1.No acute intracranial hemorrhage, midline shift, or significant mass effect. 2.No evidence of acute fracture in the cervical, thoracic, or lumbarspine. 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 > Dictated by Mukund López MD, (vice president business development). > Dictated by Mukund López MD 06/29/2025 2:57 AM > Dictated by Refractory Technician I, Azucena Christina MD have personally reviewed and interpreted this examination/study. > Interpreting Provider: Azucena Christina MD on 06/29/2025 8:56 AM Randall Beltre MD CT ORDERABLES Final Result * CT THORACIC SPINE WO CONTRAST - T/L-spine trauma, spine fracture (06/29/2025 2:49 AM SENIOR DIRECTOR MARKETING) Anatomical Region Laterality Modality Spine Computed Tomogra phy 06/29/2025 2:57 AM SENIOR DIRECTOR MARKETING Impressions 06/29/2025 8:56 AM SENIOR DIRECTOR MARKETING IMPRESSION: 1.No acute intracranial hemorrhage, midline shift, or significant mass effect. 2.No evidence of acute fracture in the cervical, thoracic, or lumbar spine. 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 > Dictated by Mukund López MD, (vice president business development). > Dictated by Mukund López MD 06/29/2025 2:57 AM > Dictated by Refractory Technician I, Azucena Christina MD have personally reviewed and interpreted this examination/study. > Interpreting Provider: Azucena Christina MD on 06/29/2025 8:56 AM Narrative 06/29/2025 8:56 AM SENIOR DIRECTOR MARKETING PROCEDURE: CT HEAD WO CONTRAST, CT LUMBAR SPINE WO CONTRAST, CT THORACIC SPINE WO CONTRAST, CT CERVICAL SPINE WO CONTRAST, DATE/TIME OF EXAM: 06/29/2025 2:53 AM, LOCATION [facility] INDICATION: W19.XXXA: Fall, initial encounter EXAMINATION: 1.Computed tomography (CT) of the head without contrast 2.CT of the cervical spine without contrast 3.CT of the thoracic spine without contrast 4.CT of the lumbar spine without contrast ADDITIONAL CLINICAL INFORMATION: Ordering Provider Reason For Exam: Technologist Note: Additional: TECHNIQUE: CT of the head and cervical spine was performed without contrast according to standard protocol. Reformatted axial, sagittal, and coronal images of the thoracic and lumbar spine were obtained by the technologist from a concurrently performed body CT and sent to the workstation for review. CT dose reduction technique was used, including Automated Exposure Control. COMPARISON: Brain CT from 03/22/2015 and brain MRI from 12/24/2013. FINDINGS: Head: No acute intra- or extra-axial fluid collections are identified. The ventricles are of normal size, shape, and morphology. The basilar cisterns are patent. No mass effect or midline shift is seen. The ly-white matter differentiation is normal. No acute calvarial fracture is identified. The orbits appear normal. Mucosal thickening and air-fluid levels are seen in the paranasal sinuses. The mastoid air cells are clear. No soft tissue abnormality is identified. Cervical spine: Mild levocurvature in the mid cervical region is likely positional. There is no spondylolisthesis. Vertebral bodies are normal in height without evidence of acute fracture. Small posterior marginal osteophytes are seen at multiple levels in the mid to lower cervical spine. The craniocervical junction is normal. There is mild degenerative disc disease. The central canal is moderately stenotic at C5-C6 and mildly stenotic at C6-C7. Stenosis at C5-C6 is due to a posterior disc osteophyte complex and ossification of the posterior longitudinal ligament. There are varying degrees of mild facet osteoarthritis. No uncovertebral hypertrophy is clearly appreciated. No high-grade foraminal narrowing is identified. No soft tissue abnormality is identified. Thoracic spine: The alignment is normal. Vertebral bodies are normal in height without evidence of acute fracture. Small marginal osteophytes and Schmorl's node are seen at multiple levels in the mid to lower thoracic spine. There is mild degenerative disc disease. No central canal stenosis is seen. The facets appear normal. No neural foraminal stenosis is seen. There is subsegmental atelectasis in the dependent portions of the lung bases. Lumbar spine: There is no scoliosis. Mild retrolisthesis is seen at L2-L3 and L5-S1. Vertebral bodies are normal in height without evidence of acute fracture. A small Schmorl's node is noted at the inferior L1 endplate. The intervertebral discs appear normal. No central canal stenosis is seen. The facets appear normal. No neural foraminal stenosis is seen. No soft tissue abnormality is identified. Procedure Note Azucena Christina MD - 06/29/2025 PROCEDURE: CT HEAD WO CONTRAST, CT LUMBAR SPINE WO CONTRAST, CTTHORACIC SPINE WO CONTRAST, CT CERVICAL SPINE WO CONTRAST, DATE/TIME OF EXAM: 06/29/2025 2:53 AM, LOCATION [facility] INDICATION: W19.XXXA: Fall, initial encounter EXAMINATION: 1.Computed tomography (CT) of the head without contrast 2.CT of the cervical spine without contrast 3.CT of the thoracic spine without contrast 4.CT of the lumbar spine without contrast ADDITIONAL CLINICAL INFORMATION: Ordering Provider Reason For Exam: Technologist Note: Additional: TECHNIQUE: CT of the head and cervical spine was performed withoutcontrast according to standard protocol. Reformatted axial, sagittal, and coronal images of the thoracic and lumbar spine were obtained by thetechnologist from a concurrently performed body CT and sent to the workstation for review. CT dose reduction technique was used, including AutomatedExposure Control. COMPARISON: Brain CT from 03/22/2015 and brain MRI from 12/24/2013. FINDINGS: Head: No acute intra- or extra-axial fluid collections are identified. The ventricles are of normal size, shape, and morphology. The basilar cisterns are patent. No mass effect or midline shift is seen. The ly-white matter differentiation is normal. No acute calvarial fracture is identified. The orbits appear normal. Mucosal thickening and air-fluid levels areseen in the paranasal sinuses. The mastoid air cells are clear. No soft tissue abnormality is identified. Cervical spine: Mild levocurvature in the mid cervical region is likely positional.There is no spondylolisthesis. Vertebral bodies are normal in height without evidence of acutefracture. Small posterior marginal osteophytes are seen at multiple levels in themid to lower cervical spine. The craniocervical junction is normal. There is mild degenerative disc disease. The central canal is moderately stenotic at C5-C6 and mildly stenotic at C6-C7. Stenosis at C5-C6 is dueto a posterior disc osteophyte complex and ossification of the posterior longitudinal ligament. There are varying degrees of mild facet osteoarthritis. No uncovertebral hypertrophy is clearly appreciated. No high-grade foraminal narrowing is identified. No soft tissue abnormality is identified. Thoracic spine: The alignment is normal. Vertebral bodies are normal in height without evidence of acutefracture. Small marginal osteophytes and Schmorl's node are seen at multiplelevels in the mid to lower thoracic spine. There is mild degenerative disc disease. No central canal stenosis isseen. The facets appear normal. No neural foraminal stenosis is seen. There is subsegmental atelectasis in the dependent portions of the lung bases. Lumbar spine: There is no scoliosis. Mild retrolisthesis is seen at L2-L3 and L5-S1. Vertebral bodies are normal in height without evidence of acute fracture.A small Schmorl's node is noted at the inferior L1 endplate. The intervertebral discs appear normal. No central canal stenosis isseen. The facets appear normal. No neural foraminal stenosis is seen. No soft tissue abnormality is identified. IMPRESSION: 1.No acute intracranial hemorrhage, midline shift, or significant mass effect. 2.No evidence of acute fracture in the cervical, thoracic, or lumbarspine. 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 > Dictated by Mukund López MD, (vice president business development). > Dictated by Mukund López MD 06/29/2025 2:57 AM > Dictated by Refractory Technician I, Azucena Christina MD have personally reviewed and interpreted this examination/study. > Interpreting Provider: Azucena Christina MD on 06/29/2025 8:56 AM us Randall Beltre MD CT ORDERABLES Final Result * CT CERVICAL SPINE WO CONTRAST - C-Spine Trauma, Spine fracture (06/29/2025 2:49 AM SENIOR DIRECTOR MARKETING) Anatomical Region Laterality Modality Spine Computed Tomogra phy 06/29/2025 2:57 AM SENIOR DIRECTOR MARKETING Impressions 06/29/2025 8:56 AM SENIOR DIRECTOR MARKETING IMPRESSION: 1.No acute intracranial hemorrhage, midline shift, or significant mass effect. 2.No evidence of acute fracture in the cervical, thoracic, or lumbar spine. 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 > Dictated by Mukund López MD, (vice president business development). > Dictated by Mukund López MD 06/29/2025 2:57 AM > Dictated by Refractory Technician I, Azucena Christina MD have personally reviewed and interpreted this examination/study. > Interpreting Provider: Azucena Christina MD on 06/29/2025 8:56 AM Narrative 06/29/2025 8:56 AM SENIOR DIRECTOR MARKETING PROCEDURE: CT HEAD WO CONTRAST, CT LUMBAR SPINE WO CONTRAST, CT THORACIC SPINE WO CONTRAST, CT CERVICAL SPINE WO CONTRAST, DATE/TIME OF EXAM: 06/29/2025 2:53 AM, LOCATION [facility] INDICATION: W19.XXXA: Fall, initial encounter EXAMINATION: 1.Computed tomography (CT) of the head without contrast 2.CT of the cervical spine without contrast 3.CT of the thoracic spine without contrast 4.CT of the lumbar spine without contrast ADDITIONAL CLINICAL INFORMATION: Ordering Provider Reason For Exam: Technologist Note: Additional: TECHNIQUE: CT of the head and cervical spine was performed without contrast according to standard protocol. Reformatted axial, sagittal, and coronal images of the thoracic and lumbar spine were obtained by the technologist from a concurrently performed body CT and sent to the workstation for review. CT dose reduction technique was used, including Automated Exposure Control. COMPARISON: Brain CT from 03/22/2015 and brain MRI from 12/24/2013. FINDINGS: Head: No acute intra- or extra-axial fluid collections are identified. The ventricles are of normal size, shape, and morphology. The basilar cisterns are patent. No mass effect or midline shift is seen. The ly-white matter differentiation is normal. No acute calvarial fracture is identified. The orbits appear normal. Mucosal thickening and air-fluid levels are seen in the paranasal sinuses. The mastoid air cells are clear. No soft tissue abnormality is identified. Cervical spine: Mild levocurvature in the mid cervical region is likely positional. There is no spondylolisthesis. Vertebral bodies are normal in height without evidence of acute fracture. Small posterior marginal osteophytes are seen at multiple levels in the mid to lower cervical spine. The craniocervical junction is normal. There is mild degenerative disc disease. The central canal is moderately stenotic at C5-C6 and mildly stenotic at C6-C7. Stenosis at C5-C6 is due to a posterior disc osteophyte complex and ossification of the posterior longitudinal ligament. There are varying degrees of mild facet osteoarthritis. No uncovertebral hypertrophy is clearly appreciated. No high-grade foraminal narrowing is identified. No soft tissue abnormality is identified. Thoracic spine: The alignment is normal. Vertebral bodies are normal in height without evidence of acute fracture. Small marginal osteophytes and Schmorl's node are seen at multiple levels in the mid to lower thoracic spine. There is mild degenerative disc disease. No central canal stenosis is seen. The facets appear normal. No neural foraminal stenosis is seen. There is subsegmental atelectasis in the dependent portions of the lung bases. Lumbar spine: There is no scoliosis. Mild retrolisthesis is seen at L2-L3 and L5-S1. Vertebral bodies are normal in height without evidence of acute fracture. A small Schmorl's node is noted at the inferior L1 endplate. The intervertebral discs appear normal. No central canal stenosis is seen. The facets appear normal. No neural foraminal stenosis is seen. No soft tissue abnormality is identified. Procedure Note Azucena Christina MD - 06/29/2025 PROCEDURE: CT HEAD WO CONTRAST, CT LUMBAR SPINE WO CONTRAST, CTTHORACIC SPINE WO CONTRAST, CT CERVICAL SPINE WO CONTRAST, DATE/TIME OF EXAM: 06/29/2025 2:53 AM, LOCATION [facility] INDICATION: W19.XXXA: Fall, initial encounter EXAMINATION: 1.Computed tomography (CT) of the head without contrast 2.CT of the cervical spine without contrast 3.CT of the thoracic spine without contrast 4.CT of the lumbar spine without contrast ADDITIONAL CLINICAL INFORMATION: Ordering Provider Reason For Exam: Technologist Note: Additional: TECHNIQUE: CT of the head and cervical spine was performed withoutcontrast according to standard protocol. Reformatted axial, sagittal, and coronal images of the thoracic and lumbar spine were obtained by thetechnologist from a concurrently performed body CT and sent to the workstation for review. CT dose reduction technique was used, including AutomatedExposure Control. COMPARISON: Brain CT from 03/22/2015 and brain MRI from 12/24/2013. FINDINGS: Head: No acute intra- or extra-axial fluid collections are identified. The ventricles are of normal size, shape, and morphology. The basilar cisterns are patent. No mass effect or midline shift is seen. The ly-white matter differentiation is normal. No acute calvarial fracture is identified. The orbits appear normal. Mucosal thickening and air-fluid levels areseen in the paranasal sinuses. The mastoid air cells are clear. No soft tissue abnormality is identified. Cervical spine: Mild levocurvature in the mid cervical region is likely positional.There is no spondylolisthesis. Vertebral bodies are normal in height without evidence of acutefracture. Small posterior marginal osteophytes are seen at multiple levels in themid to lower cervical spine. The craniocervical junction is normal. There is mild degenerative disc disease. The central canal is moderately stenotic at C5-C6 and mildly stenotic at C6-C7. Stenosis at C5-C6 is dueto a posterior disc osteophyte complex and ossification of the posterior longitudinal ligament. There are varying degrees of mild facet osteoarthritis. No uncovertebral hypertrophy is clearly appreciated. No high-grade foraminal narrowing is identified. No soft tissue abnormality is identified. Thoracic spine: The alignment is normal. Vertebral bodies are normal in height without evidence of acutefracture. Small marginal osteophytes and Schmorl's node are seen at multiplelevels in the mid to lower thoracic spine. There is mild degenerative disc disease. No central canal stenosis isseen. The facets appear normal. No neural foraminal stenosis is seen. There is subsegmental atelectasis in the dependent portions of the lung bases. Lumbar spine: There is no scoliosis. Mild retrolisthesis is seen at L2-L3 and L5-S1. Vertebral bodies are normal in height without evidence of acute fracture.A small Schmorl's node is noted at the inferior L1 endplate. The intervertebral discs appear normal. No central canal stenosis isseen. The facets appear normal. No neural foraminal stenosis is seen. No soft tissue abnormality is identified. IMPRESSION: 1.No acute intracranial hemorrhage, midline shift, or significant mass effect. 2.No evidence of acute fracture in the cervical, thoracic, or lumbarspine. 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 > Dictated by Mukund López MD, (vice president business development). > Dictated by Mukund López MD 06/29/2025 2:57 AM > Dictated by Refractory Technician I, Azucena Christina MD have personally reviewed and interpreted this examination/study. > Interpreting Provider: Azucena Christina MD on 06/29/2025 8:56 AM Randall Beltre MD CT ORDERABLES Final Result * CT HEAD WO CONTRAST - Head Trauma, CSF leak, mental status changes (06/29/2025 2:49 AM SENIOR DIRECTOR MARKETING) Anatomical Region Laterality Modality Head Computed Tomogra phy 06/29/2025 2:57 AM SENIOR DIRECTOR MARKETING Impressions 06/29/2025 8:56 AM SENIOR DIRECTOR MARKETING IMPRESSION: 1.No acute intracranial hemorrhage, midline shift, or significant mass effect. 2.No evidence of acute fracture in the cervical, thoracic, or lumbar spine. 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 > Dictated by Mukund López MD, (vice president business development). > Dictated by Mukund López MD 06/29/2025 2:57 AM > Dictated by Refractory Technician I, Azucena Christina MD have personally reviewed and interpreted this examination/study. > Interpreting Provider: Azucena Christina MD on 06/29/2025 8:56 AM Narrative 06/29/2025 8:56 AM SENIOR DIRECTOR MARKETING PROCEDURE: CT HEAD WO CONTRAST, CT LUMBAR SPINE WO CONTRAST, CT THORACIC SPINE WO CONTRAST, CT CERVICAL SPINE WO CONTRAST, DATE/TIME OF EXAM: 06/29/2025 2:53 AM, LOCATION [facility] INDICATION: W19.XXXA: Fall, initial encounter EXAMINATION: 1.Computed tomography (CT) of the head without contrast 2.CT of the cervical spine without contrast 3.CT of the thoracic spine without contrast 4.CT of the lumbar spine without contrast ADDITIONAL CLINICAL INFORMATION: Ordering Provider Reason For Exam: Technologist Note: Additional: TECHNIQUE: CT of the head and cervical spine was performed without contrast according to standard protocol. Reformatted axial, sagittal, and coronal images of the thoracic and lumbar spine were obtained by the technologist from a concurrently performed body CT and sent to the workstation for review. CT dose reduction technique was used, including Automated Exposure Control. COMPARISON: Brain CT from 03/22/2015 and brain MRI from 12/24/2013. FINDINGS: Head: No acute intra- or extra-axial fluid collections are identified. The ventricles are of normal size, shape, and morphology. The basilar cisterns are patent. No mass effect or midline shift is seen. The ly-white matter differentiation is normal. No acute calvarial fracture is identified. The orbits appear normal. Mucosal thickening and air-fluid levels are seen in the paranasal sinuses. The mastoid air cells are clear. No soft tissue abnormality is identified. Cervical spine: Mild levocurvature in the mid cervical region is likely positional. There is no spondylolisthesis. Vertebral bodies are normal in height without evidence of acute fracture. Small posterior marginal osteophytes are seen at multiple levels in the mid to lower cervical spine. The craniocervical junction is normal. There is mild degenerative disc disease. The central canal is moderately stenotic at C5-C6 and mildly stenotic at C6-C7. Stenosis at C5-C6 is due to a posterior disc osteophyte complex and ossification of the posterior longitudinal ligament. There are varying degrees of mild facet osteoarthritis. No uncovertebral hypertrophy is clearly appreciated. No high-grade foraminal narrowing is identified. No soft tissue abnormality is identified. Thoracic spine: The alignment is normal. Vertebral bodies are normal in height without evidence of acute fracture. Small marginal osteophytes and Schmorl's node are seen at multiple levels in the mid to lower thoracic spine. There is mild degenerative disc disease. No central canal stenosis is seen. The facets appear normal. No neural foraminal stenosis is seen. There is subsegmental atelectasis in the dependent portions of the lung bases. Lumbar spine: There is no scoliosis. Mild retrolisthesis is seen at L2-L3 and L5-S1. Vertebral bodies are normal in height without evidence of acute fracture. A small Schmorl's node is noted at the inferior L1 endplate. The intervertebral discs appear normal. No central canal stenosis is seen. The facets appear normal. No neural foraminal stenosis is seen. No soft tissue abnormality is identified. Procedure Note Christina, Azucena C, MD - 06/29/2025 PROCEDURE: CT HEAD WO CONTRAST, CT LUMBAR SPINE WO CONTRAST, CTTHORACIC SPINE WO CONTRAST, CT CERVICAL SPINE WO CONTRAST, DATE/TIME OF EXAM: 06/29/2025 2:53 AM, LOCATION [facility] INDICATION: W19.XXXA: Fall, initial encounter EXAMINATION: 1.Computed tomography (CT) of the head without contrast 2.CT of the cervical spine without contrast 3.CT of the thoracic spine without contrast 4.CT of the lumbar spine without contrast ADDITIONAL CLINICAL INFORMATION: Ordering Provider Reason For Exam: Technologist Note: Additional: TECHNIQUE: CT of the head and cervical spine was performed withoutcontrast according to standard protocol. Reformatted axial, sagittal, and coronal images of the thoracic and lumbar spine were obtained by thetechnologist from a concurrently performed body CT and sent to the workstation for review. CT dose reduction technique was used, including AutomatedExposure Control. COMPARISON: Brain CT from 03/22/2015 and brain MRI from 12/24/2013. FINDINGS: Head: No acute intra- or extra-axial fluid collections are identified. The ventricles are of normal size, shape, and morphology. The basilar cisterns are patent. No mass effect or midline shift is seen. The ly-white matter differentiation is normal. No acute calvarial fracture is identified. The orbits appear normal. Mucosal thickening and air-fluid levels areseen in the paranasal sinuses. The mastoid air cells are clear. No soft tissue abnormality is identified. Cervical spine: Mild levocurvature in the mid cervical region is likely positional.There is no spondylolisthesis. Vertebral bodies are normal in height without evidence of acutefracture. Small posterior marginal osteophytes are seen at multiple levels in themid to lower cervical spine. The craniocervical junction is normal. There is mild degenerative disc disease. The central canal is moderately stenotic at C5-C6 and mildly stenotic at C6-C7. Stenosis at C5-C6 is dueto a posterior disc osteophyte complex and ossification of the posterior longitudinal ligament. There are varying degrees of mild facet osteoarthritis. No uncovertebral hypertrophy is clearly appreciated. No high-grade foraminal narrowing is identified. No soft tissue abnormality is identified. Thoracic spine: The alignment is normal. Vertebral bodies are normal in height without evidence of acutefracture. Small marginal osteophytes and Schmorl's node are seen at multiplelevels in the mid to lower thoracic spine. There is mild degenerative disc disease. No central canal stenosis isseen. The facets appear normal. No neural foraminal stenosis is seen. There is subsegmental atelectasis in the dependent portions of the lung bases. Lumbar spine: There is no scoliosis. Mild retrolisthesis is seen at L2-L3 and L5-S1. Vertebral bodies are normal in height without evidence of acute fracture.A small Schmorl's node is noted at the inferior L1 endplate. The intervertebral discs appear normal. No central canal stenosis isseen. The facets appear normal. No neural foraminal stenosis is seen. No soft tissue abnormality is identified. IMPRESSION: 1.No acute intracranial hemorrhage, midline shift, or significant mass effect. 2.No evidence of acute fracture in the cervical, thoracic, or lumbarspine. 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 > Dictated by Mukund López MD, (vice president business development). > Dictated by Mukund López MD 06/29/2025 2:57 AM > Dictated by Refractory Technician I, Azucena Christina MD have personally reviewed and interpreted this examination/study. > Interpreting Provider: Azucena Christina MD on 06/29/2025 8:56 AM Randall Beltre MD CT ORDERABLES Final Result * VITAMIN D 25-HYDROXY (06/29/2025 2:26 AM SENIOR DIRECTOR MARKETING) [facility] Signature Vitamin D, 25 Hydroxy 33.5 30.0 - 80.0 ng/mL 06/29/2025 9:24 AM SENIOR DIRECTOR MARKETING [facility] Comment: The recommendations for 25-Hydroxy Vitamin D clinical decision points are as follows: Deficient: <20.0 ng/mL Insufficient: 20.0 - 29.9 ng/mL Sufficient: 30.0 - 100.0 ng/mL Potential Toxicity: >100 ng/mL Reference: The Endocrine Society Clinical Practice Guidelines. 2011 If the 25-Hydroxy Vitamin D results are inconsitent with clinical evidence, it is recommended that follow-up testing using a method such as LC/MS/MS be performed to confirm the result. Blood BLOOD SPECIMEN / Unknown Venipuncture / Unknown 06/29/2025 2:26 AM SENIOR DIRECTOR MARKETING 06/29/2025 2:32 AM SENIOR DIRECTOR MARKETING Result [facility] Elis Longoria PA-C LAB - CHEMISTRY ORDE JUANI Final Result Performing Organization Address City/[facility]/ZIP Co de Phone Number [facility] [address] [place] [address], [facility] [phone] * TYPE + SCREEN PANEL (06/29/2025 2:26 AM SENIOR DIRECTOR MARKETING) Antibody Screen NEG 3:22 AM SENIOR DIRECTOR MARKETING [facility] ABO Rh A POS 06/29/2025 3:22 AM SENIOR DIRECTOR MARKETING [facility] Blood Bank BLOOD SPECIMEN / Unknown Venipuncture / Unknown 06/29/2025 2:26 AM SENIOR DIRECTOR MARKETING 06/29/2025 2:35 AM SENIOR DIRECTOR MARKETING Result [facility] Randall Beltre MD LAB - BLOOD BANK ORDERABLES Fi nal Result Performing Organization Address City/[facility]/ZIP Co de Phone Number [facility] [address] [place] [address], [facility] [phone] * PT-INR (06/29/2025 2:26 AM SENIOR DIRECTOR MARKETING) PT 12.7 12.1 - 14.8 Seconds 06/29/2025 2:59 AM [facility] INR 1.0 See Comment 06/29/2025 2:59 AM [facility] Comment:The suggested therap eutic range for standard coumadin (warfarin) therapy is an INR of 2.0-3.0. For high-risk patients (Mechanical Mitral Valve Prosthesis, etc.), the suggested prophylactic therapeutic range is an INR of 2.5-3.5. Blood BLOOD SPECIMEN / Unknown Venipuncture / Unknown 06/29/2025 2:26 AM SENIOR DIRECTOR MARKETING 06/29/2025 2:32 AM SENIOR DIRECTOR MARKETING Result [facility] Randall Beltre MD LAB - COAGULATION ORDERABLES F inal Result [facility] [address] [place] [id number], [facility] [phone] * CBC W AUTO DIFFERENTIAL (06/29/2025 2:26 AM [facility]) WBC 9.6 4.0 - 10.7 x10E9/L 06/29/2025 2:35 AM [facility] RBC Count 4.93 4.30 - 5.80 x10E12/L 06/29/2025 2:35 AM [facility] Hemoglobin 14.9 13.3 - 17.5 g/dL 06/29/2025 2:35 AM [facility] Hematocrit 41.9 38.7 - 51.1 % 06/29/2025 2:35 AM [facility] MCV 85.0 80.0 - 98.0 fL 06/29/2025 2:35 AM [facility] MCH 30.2 26.7 - 33.6 pg 06/29/2025 2:35 AM [facility] MCHC 35.6 31.7 - 36.3 g/dL 06/29/2025 2:35 AM [facility] RDW-CV 11.9 11.3 - 14.8 % 06/29/2025 2:35 AM [facility] Platelet Count 393 150 - 420 x10E9/L 06/29/2025 2:35 AM [facility] MPV 10.4 7.8 - 11.4 fL 06/29/2025 2:35 AM [facility] Neutrophil % 67.2 41.0 - 74.0 % 06/29/2025 2:35 AM [facility] Lymphocyte % 23.7 17.0 - 47.0 % 06/29/2025 2:35 AM [facility] Monocyte % 7.0 3.0 - 11.0 % 06/29/2025 2:35 AM [facility] Eosinophil % 0.6 0.0 - 7.0 % 06/29/2025 2:35 AM [facility] Basophil % 0.7 0.0 - 1.6 % 06/29/2025 2:35 AM [facility] Immature Granulocytes % 0.8 0.0 - 1.0 % 06/29/2025 2:35 AM [facility] Neutrophil Absolute 6.42 1.60 - 7.50 x10E9/L 06/29/2025 2:35 AM [facility] Lymphocyte Absolute 2.27 1.00 - 4.40 x10E9/L 06/29/2025 2:35 AM [facility] Monocyte Absolute 0.67 0.15 - 1.00 x10E9/L 06/29/2025 2:35 AM [facility] Eosinophil Absolute 0.06 0.00 - 0.60 x10E9/L 06/29/2025 2:35 AM [facility] Basophil Absolute 0.07 0.00 - 0.13 x10E9/L 06/29/2025 2:35 AM [facility] Blood BLOOD SPECIMEN / Unknown Venipuncture / Unknown 06/29/2025 2:26 AM SENIOR DIRECTOR MARKETING 06/29/2025 2:32 AM [facility] us Randall Beltre MD LAB - HEMATOLOGY ORDERABLES Fi nal Result [address] [address], [facility] [phone] * (ABNORMAL) BASIC METABOLIC PANEL (CALCIUM TOTAL) (06/29/2025 2:26 AM SENIOR DIRECTOR MARKETING) BUN 8 7 - 26 mg/dL 06/29/2025 3:02 AM [facility] Creatinine 0.84 0.71 - 1.16 mg/dL 06/29/2025 3:02 AM [facility] Sodium 143 136 - 145 mmol/L 06/29/2025 3:02 AM [facility] Potassium 3.8 3.5 - 4.5 mmol/L 06/29/2025 3:02 AM [facility] Chloride 111(H) 98 - 107 mmol/L 06/29/2025 3:02 AM [facility] CO2 19(L) 22 - 29 mmol/L 06/29/2025 3:02 AM [facility] Glucose 105(H) 70 - 99 mg/dL 06/29/2025 3:02 AM [facility] Calcium 9.4 8.4 - 10.2 mg/dL 06/29/2025 3:02 AM [facility] Anion Gap 13 6 - 16 06/29/2025 3:02 AM [facility] BUN/Creatinine Ratio 10 7 - 23 06/29/2025 3:02 AM [facility] Osmolality Calculated 295 275 - 295 mOsm/kg 06/29/2025 3:02 AM [facility] eGFR by CKD-EPI >90 >=90 mL/min/1.7 3 m2 06/29/2025 3:02 AM [facility] Comment:Estimated Glomerular Filtration Rate (eGFR) calculated using the CKD-EPI Creatinine Equation (2020), per the National Kidney Foundation and [place] [employer]ph[employer] recommendations. Blood BLOOD SPECIMEN / Unknown Venipuncture / Unknown 06/29/2025 2:26 AM SENIOR DIRECTOR MARKETING 06/29/2025 2:32 AM SENIOR DIRECTOR MARKETING Randall Beltre MD LAB - CHEMISTRY ORDERABLES Fin al Result Performing Organization Address City/[facility]/ZIP Co de Phone Number [address] [address], [place] [phone] * LIPASE BLOOD (06/29/2025 2:26 AM SENIOR DIRECTOR MARKETING) Lipase 61 8 - 78 U/L 06/29/2025 3:02 AM [facility] Blood BLOOD SPECIMEN / Unknown Venipuncture / Unknown 06/29/2025 2:26 AM SENIOR DIRECTOR MARKETING 06/29/2025 2:32 AM SENIOR DIRECTOR MARKETING Narrative [facility] - 06/29/2025 3:02 AM SENIOR DIRECTOR MARKETING Lipase results from the [employer] analyzer may not be comparable with other methodologies. Randall Beltre MD LAB - CHEMISTRY ORDERABLES Fin al Result [address] [address], [place] [phone] * (ABNORMAL) ALCOHOL ETHYL BLOOD (06/29/2025 2:26 AM [facility]) Ethanol (mg/dL) 211(H) <10 mg/dL 3:02 AM [facility] Ethanol Calculated (g/dL) 0.211(H) <=0.010 g/dL 06/29/2025 3:02 AM [facility] Blood BLOOD SPECIMEN / Unknown Venipuncture / Unknown 06/29/2025 2:26 AM SENIOR DIRECTOR MARKETING 06/29/2025 2:32 AM [facility] Narrative [facility] - 06/29/2025 3:02 AM [facility] Ethanol Interp <10: None Detected. Depression of [employer] OFFICER: >100 mg/dl Potentially Critical: >250 mg/dl Potentially Fatal >400 mg/dl Ethanol in the patient's blood will contribute to the osmolar gap. Ethanol's contribution to the osmolar gap can be estimated by dividing the concentration of ethanol in mg/dL by 4.6. This test is for clinical use only and does not equal a ALBA for legal purposes. us Randall Beltre MD LAB - CHEMISTRY ORDERABLES Fin al Result [facility] [address] [place] [phone], [facility] [phone] * XR CHEST 1VW PORTABLE (06/29/2025 2:23 AM SENIOR DIRECTOR MARKETING) Anatomical Region Laterality Modality Chest Digital Radiogra phy 06/29/2025 2:31 AM SENIOR DIRECTOR MARKETING Narrative 06/29/2025 7:08 AM SENIOR DIRECTOR MARKETING PROCEDURE: XR CHEST 1VW PORTABLE, XR PELVIS 1 OR 2VW, DATE/TIME OF EXAM: 06/29/2025 2:23 AM, LOCATION [facility] INDICATION: W19.XXXA: Fall, initial encounter ADDITIONAL CLINICAL INFORMATION: Ordering Provider Reason For Exam: Technologist Note: Additional: COMPARISON: None. TECHNIQUE: Frontal radiograph of the chest and pelvis. FINDINGS/IMPRESSION: Chest: There is no focal consolidation, pleural effusion, or pneumothorax. The cardiomediastinal silhouette is normal. No displaced fractures are identified. Pelvis: No displaced fractures are identified. The bilateral femoral heads are well-seated in their respective acetabula. The SI joints are normal. No pubic symphysis diastasis. Report dictated by Mukund López MD, (Refractory Technician). > Dictated by Mukund López MD 06/29/2025 2:31 AM > Dictated by Refractory Technician I, Natividad Loya MD have personally reviewed and interpreted this examination/study. > Interpreting Provider: Natividad Loya MD on 06/29/2025 7:08 AM Procedure Note Natividad Loya MD - 06/29/2025 PROCEDURE: XR CHEST 1VW PORTABLE, XR PELVIS 1 OR 2VW, DATE/TIME OF EXAM: 06/29/2025 2:23 AM, LOCATION [facility] INDICATION: W19.XXXA: Fall, initial encounter ADDITIONAL CLINICAL INFORMATION: Ordering Provider Reason For Exam: Technologist Note: Additional: COMPARISON: None. TECHNIQUE: Frontal radiograph of the chest and pelvis. FINDINGS/IMPRESSION: Chest: There is no focal consolidation, pleural effusion, or pneumothorax. The cardiomediastinal silhouette is normal. No displaced fractures are identified. Pelvis: No displaced fractures are identified. The bilateral femoral heads are well-seated in their respective acetabula. The SI joints are normal. No pubic symphysis diastasis. Report dictated by Mukund López MD, (Refractory Technician). > Dictated by Mukund López MD 06/29/2025 2:31 AM > Dictated by Refractory Technician Natividad Poe MD have personally reviewed and interpreted this examination/study. > Interpreting Provider: Natividad Loya MD on 57:08 AM Randall Beltre MD DIAGNOSTIC IMAGING ORDERABLES Final Result * XR PELVIS 1 OR 2VW (06/29/2025 2:23 AM SENIOR DIRECTOR MARKETING) Anatomical Region Laterality Modality Pelvis Digital Radiogra phy 06/29/2025 2:31 AM SENIOR DIRECTOR MARKETING Narrative 06/29/2025 7:08 AM SENIOR DIRECTOR MARKETING PROCEDURE: XR CHEST 1VW PORTABLE, XR PELVIS 1 OR 2VW, DATE/TIME OF EXAM: 06/29/2025 2:23 AM, LOCATION [facility] INDICATION: W19.XXXA: Fall, initial encounter ADDITIONAL CLINICAL INFORMATION: Ordering Provider Reason For Exam: Technologist Note: Additional: COMPARISON: None. TECHNIQUE: Frontal radiograph of the chest and pelvis. FINDINGS/IMPRESSION: Chest: There is no focal consolidation, pleural effusion, or pneumothorax. The cardiomediastinal silhouette is normal. No displaced fractures are identified. Pelvis: No displaced fractures are identified. The bilateral femoral heads are well-seated in their respective acetabula. The SI joints are normal. No pubic symphysis diastasis. Report dictated by Mukund López MD, (Refractory Technician). > Dictated by Mukund López MD 06/29/2025 2:31 AM > Dictated by Refractory Technician Deepika, Natividad Loya MD have personally reviewed and interpreted this examination/study. > Interpreting Provider: Natividad Loya MD on 06/29/2025 7:08 AM Procedure Note Natividad Loya MD - 06/29/2025 PROCEDURE: XR CHEST 1VW PORTABLE, XR PELVIS 1 OR 2VW, DATE/TIME OF EXAM: 06/29/2025 2:23 AM, LOCATION [facility] INDICATION: W19.XXXA: Fall, initial encounter ADDITIONAL CLINICAL INFORMATION: Ordering Provider Reason For Exam: Technologist Note: Additional: COMPARISON: None. TECHNIQUE: Frontal radiograph of the chest and pelvis. FINDINGS/IMPRESSION: Chest: There is no focal consolidation, pleural effusion, or pneumothorax. The cardiomediastinal silhouette is normal. No displaced fractures are identified. Pelvis: No displaced fractures are identified. The bilateral femoral heads are well-seated in their respective acetabula. The SI joints are normal. No pubic symphysis diastasis. Report dictated by Mukund López MD, (Refractory Technician). > Dictated by Mukund López MD 06/29/2025 2:31 AM > Dictated by Refractory Technician I, Natividad Loya MD have personally reviewed and interpreted this examination/study. > Interpreting Provider: Natividad Loya MD on 57:08 AM Randall Beltre MD DIAGNOSTIC IMAGING ORDERABLES Final Result from Last 3 Months Insurance MEDICAID MEDICAID Care Teams Case Packer And Sealer Relationship Specialty Start Date End Date Bin Fernandez MD [address] [place] [id number] PCP - General Pediatrics 11/24/13
--- OUTSIDE RECORDS SUMMARY | 2025-07-08 22:47 | XMS_ITS | Encounter Summary ---
Author Organization [facility] Address [address] [facility] [place] [address] Care Team Providers Care Cylinder Devalver Name Role Phone Bin Fernandez MD Primary Care Provider [phone] Encounter Details Date Type Department Care Team (Late st Contact Info) Description 07/04/2025 Orders Only [facility] - Orthopedics [address] [place] [address], [place] [address] Nathan De, DO [address] [place] [address] [place] [address] Nondisplaced fracture of medial cuneiform of right foot, initial encounter for closed fracture Social History Tobacco Use Types Packs/Day Years Used Date Smoking Tobacco: Former Cigarettes Passive Smoke Exposure: Yes Smokeless Tobacco: Never Alcohol Use Standard Drinks/Week Comments Yes 0 (1 standard drink = 0.6 oz pur [...] on file Legal Sex Male 5:38 AM METAL RIVET MACHINE OPERATOR Gender Identity Not on file Sexual Orientation Not on file documented as of this encounter Functional Status * Is person deaf or have serious [...] st Contact Info) Description 07/12/2025 10:30 AM METAL RIVET MACHINE OPERATOR Office Visit [facility] Orthopedics [address] [place] [address], [facility] [place] [address] Nathan De, [address] OF [place] [address] Scheduled Procedures Name Priority Associated Diagnoses Date/Ti me OPEN REDUCTION INTERNAL FIXATION (ORIF) TARSAL/METATARSAL Lisfranc's dislocation, right, initial encounter Nondisplaced fracture of medial cuneiform of right foot, initial encounter for closed fracture 07/08/2025 9:06 AM METAL RIVET MACHINE OPERATOR documented as of this encounter Results * XR Foot Right 3Vw or More (07/05/2025 10:24 AM METAL RIVET MACHINE OPERATOR) Anatomical Region Laterality Modality Ankle / Foot Radiographic Malika ging 07/05/2025 10:5 4 AM METAL RIVET MACHINE OPERATOR Impressions 07/05/2025 10:56 AM METAL RIVET MACHINE OPERATOR IMPRESSION: Fractures in a splint, unchanged in alignment. > Interpreting Provider: Gus Balderrama MD on 07/05/2025 10:56 AM Narrative 07/05/2025 10:56 AM METAL RIVET MACHINE OPERATOR PROCEDURE: XR FOOT RIGHT 3VW OR MORE [...] De DO DIAGNOSTIC IMAGING ORDERABLES Final Result documented in this encounter Visit Diagnoses Diagnosis Nondisplaced fracture of medial cuneiform of right foot, initial encounter for closed fracture- Primary Nondisplaced fracture of medial cuneiform of right foot, initial encounter for closed fracture documented in this encounter Care Teams Cylinder Devalver Relationship Specialty [place] [address] [place] [phone] PCP - General Pediatrics 11/24/13 documented as of this encounter
[2025-07-08 22:52] VITALS: BP 142/93; PULSE 92; RESP 14; TEMP 36.7; O2SAT 98
[2025-07-08] MEDS: oxyCODONE/ACETAMINOPHEN (*CRX) 5-325 MG TABLET 1 TABLET PO (23:36)
--- NOTE | 2025-07-08 23:38 | ED_ITS ---
HPI - Extremity Injury (Lower) General Chief Complaint: Extremity Injury, Lower Stated Complaint: pain after surgery Time Seen by Provider: 07/08/25 22:55 History of Present Illness HPI Narrative: Patient is a 25-year-old male who presents to the ER with right foot pain following foot surgery earlier today. He reports his pain worsened before he left the hospital earlier today. Patient reports he felt a pop in his right foot before he was discharged. He reports he has taken oxycodone as needed for pain control but endorses burning from his midfoot extending up to his toes. Patient denies decreased range of motion in his toes, drainage from the incision site, or recent fevers. He reports they spread my foot open when they did my surgery. Related Data Allergies Allergy/AdvReac Type Severity Reaction Status Date / Time No Known Allergies Allergy Verified 06/22/24 15:08 [facility] Past Medical History Medical History No significant medical problems Surgical History Surgical History History of ankle surgery Right Social History Social History Smoking status: Current every day smoker Substance use type: marijuana Gender identity (if verbalized by the patient): Male Course Vital Signs Vital signs: Vital Signs Temperature 36.7 C 07/08/25 22:52 Pulse Rate 92 07/08/25 22:52 Respiratory Rate 14 07/08/25 22:52 Blood Pressure 142/93 H 07/08/25 22:52 Pulse Oximetry 98 07/08/25 22:52 Oxygen Delivery Room Air 07/08/25 22:52 Temperature 36.7 C 07/08/25 22:52 Pulse Rate 92 07/08/25 22:52 Respiratory Rate 14 07/08/25 22:52 Blood Pressure 142/93 H 07/08/25 22:52 Pulse Oximetry 98 07/08/25 22:52 Oxygen Delivery Room Air 07/08/25 22:52 MDM - Extremity Injury (Lower) MDM Narrative Medical decision making narrative: Patient is a 25-year-old male who presents to the ER with right foot pain following foot surgery earlier today. He reports his pain worsened before he left the hospital earlier today. Patient reports he felt a pop in his right foot before he was discharged. He reports he has taken oxycodone as needed for pain control but endorses burning from his midfoot extending up to his toes. Patient denies decreased range of motion in his toes, drainage from the incision site, or recent fevers. He reports they spread my foot open when they did my surgery. Imaging Ordered: Right foot x-ray Medications Ordered: Percocet Results: Pt's x-ray indicates no acute osseous abnormality. Diagnosis: post-operative pain Patient Education/Shared MDM: Results of imaging shared with patient and his mother. He endorses mild improvement of symptoms following medication ad ministration. Patient strongly advised to follow-up with his orthopedic surgeon as soon as possible. He will not be discharged home with any new prescriptions. Strict return precautions provided. Patient verbalized understanding and is in agreement with plan. Vital signs stable at time of discharge. All questions answered. Differential Diagnosis Differential diagnosis: Likely other (surgical pain, acute fracture, post- operative misalignment) Imaging Data Attestation: I personally reviewed and interpreted this imaging study as follows: My impression: No acute osseous abnormalities. Discharge Plan Discharge Clinical Impression: Acute postoperative pain of right foot Patient Disposition: Home Condition: Stable Instructions: Antibiotic Form Additional Instructions: Please return to the ER with any worsening symptoms. Follow-up with your orthopedic surgery as soon as possible. Take all medications as prescribed, including regularly scheduled medications. Patient Language: Latvian Prescriptions: No Action amoxicillin-pot clavulanate 875-125 mg tablet 1 tablet PO Q12H Qty: 14 0RF prednisone 50 mg tablet 50 mg PO DAILY Qty: 5 0RF albuterol sulfate [Ventolin HFA] 90 mcg/actuation HFA aerosol inhaler 2 puff inhalation QID PRN (Reason: shortness of breath or wheezing) Qty: 8.5 0RF benzonatate 200 mg capsule 200 mg PO TID PRN (Reason: cough) Qty: 30 0RF Follow-up/Referrals: PHYSICIAN,TALLIER [Primary Care Provider, Internal Medicine] Time of Disposition: 00:36
[2025-07-09] MEDS: oxyCODONE/ACETAMINOPHEN (*CRX) 5-325 MG TABLET 1 TABLET PO (01:01)
[2025-07-09] MEDS: KETOROLAC (*BKC) 60 MG/2 ML VIAL IM (01:02)
[2025-07-09 01:16] VITALS: BP 141/97; PULSE 72; RESP 18; O2SAT 99
== END 2025-07-09 01:17 | disposition home or self-care (01) ==
PROVIDERS: Emergency Provider Registered Nurse
DX: G89.18 Other acute postprocedural pain (principal); M79.671 Pain in right foot
CPT/HCPCS: 73630; 96372; 99283; A9270; J1885